=== PATIENT | male | born 1975 | race Caucasian/White ===

== ENCOUNTER 2025-02-12 20:24 | Emergency (ER) | payer OTHER, SELFPAY ==
--- NOTE | ~2025-02-12 | CT_ITS ---
CT ANGIOGRAM NECK AND HEAD History: Dizziness. Technique: Axial noncontrast imaging of the brain was performed. Serial spiral axial images through t he head and neck were obtained during arterial phase IV injection of 100 cc of Omnipaque 350. 3-D postprocessing and MIP im ages were then reconstructed on the remote workstation. Dose reduction technique was used on this sca n by utilizing automated exposure control and iterative reconstruction technique. The dose-length pro duct (DLP) was 1729.75 mGy-cm. CTA neck findings: Bilateral vertebral arteries are patent. Bilateral common carotid, internal carot id, external carotid arteries are patent. There is calcified and soft plaque at the proximal right in ternal carotid artery with approximately 60% stenosis. No other stenosis identified. No large vessel occlusion. No aneurysm. The proximal right internal carotid artery demonstrates 60% stenosis relative to the normal distal artery lumen diameter. The proximal left internal carotid artery demonstrates 0 % stenosis relative to the normal distal artery lumen diameter. CTA head findings: Distal vertebral arteries, basilar artery, and posterior cerebral arteries are pat ent. Distal internal carotid arteries, middle cerebral arteries, and anterior cerebral arteries are p atent. No large vessel occlusion or stenosis. No aneurysm seen. Axial noncontrast imaging of the brain is unremarkable. No acute infarct, intracranial hemorrhage or mass lesion is seen. No mass effect or midline shift. Jang-white differentiation intact. Ventricles a nd subarachnoid spaces are unremarkable. Paranasal sinuses and mastoid air cells are clear. Calvarium intact. Impression: 60% stenosis to the proximal right internal carotid artery with mixed calcified and soft plaque prese nt in this region. Reviewed, dictated and finalized at location M. Impression: 60% stenosis to the proximal right internal carotid artery with mixed calcified and soft plaque present in this region.
--- NOTE | ~2025-02-12 | XR_ITS ---
EXAMINATION: XR chest 2V Exam Date/Time: 02/12/2025 21:29 CDT HISTORY: chest pain intermittent, dizziness Comparison: None. RESULT: Lines, tubes, and devices: Ostial markers. Lungs and pleura: Clear. Cardiomediastinal silhouette: Stable. Other: No acute osseous or upper abdominal finding. IMPRESSION: No acute cardiopulmonary process. Reviewed, dictated and finalized at location K.
--- OUTSIDE RECORDS SUMMARY | 2025-02-12 20:28 | XMS_ITS ---
Author Organization [facility] Address [address] [facility] [address] [place] [address] Care Team Providers Care Manager Regional Name Role Phone Aki Diaz Unavailable [phone] Encounters Encounter Location Date Provider Diagnosis [facility] [address] [facility] [address] [place] [address] 07/01/2024 Aki Diaz Plan Of Treatment No Information Progress Notes * Vamshi SAHU MDOB: [birth year] (49 yo M)Acc No.[id number]:07/01/2024 Progress Notes Patient: Elvin MARCANOVamshi Obrien Provider: Vinod RAY MD, Igor.Lynette.C.P, F.A.S.N. :1975 A ge:48 Y S ex:Male Date:07/01/2024 Address:[address] [place] [address] Subjective: * Chief Complaints: * * Medical History: Objective: * Vitals: Assessment: Plan: * Treatment: * Billing Information: * Visit Code: * Procedure Codes: * Electronic signature of Luis Enrique Diaz MD on 02/12/2025 at 08:28 PM CDT Sign off status: Pending * Provider: Vinod RAY MD, Igor.Lynette.C.P, F.A.S.N. Date: Generated for Printing/Faxing/eTransmitting on: 02/12/2025 08:28 PM CDT
--- OUTSIDE RECORDS SUMMARY | 2025-02-12 20:28 | XMS_ITS | Patient Health Record ---
Author Organization [facility] Address [address] [place] [address] Care Team Providers Care Associate Software Developer Name Role Phone Aki Diaz Unavailable [phone] Reason For Referral No Information Problems Problem Type SNOMED Code ICD Code Onset Dates Problem Status W/U Status Risk Notes Problem Type II diabetes mellitus without complication (478248914) Type 2 diabetes mellitus without complications (E11.9) Active confirmed Problem Hyperlipidemia (26255396) Hyperlipidemia, unspecified (E78.5) Active confirmed Problem Chronic kidney disease stage 2 (450306427) Chronic kidney disease, stage 2 (mild) (N18.2) Active confirmed Problem Essential hypertension (85872654) Essential hypertension (I10) Active confirmed Encounters Encounter Location Date Provider Diagnosis [facility] [place] [facility] [address] [place] [address] 08/19/2024 Aki Diaz Chronic kidney disease, stage 2 (mild) N18.2 ; Type 2 diabetes mellitus without complications E11.9 ; Essential hypertension I10 and Hyperlipidemia, unspecified E78.5 Assessments Encounter Date Diagnosis (ICD Code) Assessment Notes Treatment Notes Treatment Clinical Notes Section Notes 08/19/2024 Type 2 diabetes mellitus without complications (ICD-10 - E11.9) 08/19/2024 Chronic kidney disease, stage 2 (mild) (ICD-10 - N18.2) 08/19/2024 Essential hypertension (ICD-10 - I10) 08/19/2024 Hyperlipidemia, unspecified (ICD-10 - E78.5) Plan Of Treatment No Information
--- OUTSIDE RECORDS SUMMARY | 2025-02-12 20:28 | XMS_ITS | CONTINUITY OF CARE DOCUMENT ---
Author Name oracio, awaisser Address Unknown Organization [facility] Address [address] [address] [place] [address] Phone [phone] Care Team Providers Care Investigations Chief Name Role Phone Dat Tomas MD Unavailable Dat Tomas MD Unavailable DEVANTE THURMAN MD Unavailable [phone] PROBLEMS Condition Status Date Provider Notes Cardiology examination active Dat Tomas MD Diabetes mellitus active Dat Tomas MD HYPERTENSION active Dat Tomas MD Hyperlipidemia active Dat Tomas MD CAD active Dat Tomas MD Myocardial infarction active Dat Talbert CAD s/p CABG active Freda Boogiemikelley [employer] ENCOUNTERS Date Type Provider Location Encounter Diag nosis 12/16 - 4 In-person encounter Office Visit Dat Tomas MD [facility] CAD s/p CABG 05/21 - 05/21 In-person encounter Office Visit Dat Tomas MD [facility] 11/13 - 11/14 In-person encounter Office Visit Dat Tomas MD [facility] 09/30 - 09/30 In-person encounter Office Visit Dat Tomas MD [facility] 06/09 - 06/09 In-person encounter Office Visit Dat Tomas MD [facility] 05/01 - 05/01 In-person encounter Office Visit Dat Tomas MD [facility] Cardiology examinationDiabetes mellitusHYPERTENSIONHyperlipidemiaCADMyocardial infarction VITAL SIGNS Date Observation Value Provider Body Mass Index (Ratio) 32.57 kg/m2 Viry Tomas MD blood pressure, diastolic 82 mm[Hg] Minerva nkLogic blood pressure, systolic 120 mm[Hg] Dominique kLogic blood pressure, cuff size regular Ja rret blood pressure, diastolic 82 mm[Hg] Ja rret blood pressure, systolic 120 mm[Hg] Jar pulse rate 82 /min Jean respiratory rate E&M 16 /min oxygen saturation, oximetry 97 % weight E&M 208 [lb_av] Jean y height E&M 67 [in_i] Jean Body Mass Index (Ratio) 31.79 kg/m2 Viry Tomas MD blood pressure, cuff size regular Ja rret blood pressure, diastolic 81 mm[Hg] Ja rret blood pressure, systolic 146 mm[Hg] Jar ret pulse rate 82 /min Jean oxygen saturation, oximetry 96 % respiratory rate E&M 12 /min Jean weight E&M 203 [lb_av] Jean y height E&M 67 [in_i] Jean y Body Mass Index (Ratio) 32.73 kg/m2 Viry Tomas MD blood pressure, cuff size large Ke rri Gruenenfelder blood pressure, diastolic 74 mm[Hg] Ke rri Gruenenfelder blood pressure, systolic 114 mm[Hg] Re ri Gruenenfelder oxygen saturation, oximetry 97 % Marcelina Gruenenfelder respiratory rate E&M 14 /min Marcelina G ruenenfelder pulse rate 78 /min Marcelina Gruenenfe er weight E&M 209 [lb_av] Marcelina Gruenenfe er height E&M 67 [in_i] Marcelina Gruenenfe [facility] Body Mass Index (Ratio) 33.36 kg/m2 Viry Tomas MD blood pressure, cuff size large Ke rri Gruenenfelder blood pressure, diastolic 81 mm[Hg] Ke rri Gruenenfelder blood pressure, systolic 130 mm[Hg] Re ri Indrauenejohannyelder oxygen saturation, oximetry 98 % Marcelina Amandanejohannyelder respiratory rate E&M 16 /min Marcelina G miguelinaenenfelder pulse rate 74 /min Marcelina Gruenenfe er weight E&M 213 [lb_av] Marcelina Grtanyanenfe [facility] height E&M 67 [in_i] Marcelina Gruenenfe [facility] blood pressure, diastolic 78 mm[Hg] Li nkLogic blood pressure, systolic 128 mm[Hg] Dominique kLogic Body Mass Index (Ratio) 33.20 kg/m2 Viry Tomas MD blood pressure, cuff size regular St acradha Lawrence blood pressure, diastolic 78 mm[Hg] St acy Howard blood pressure, systolic 128 mm[Hg] Aimee Lawrence oxygen saturation, oximetry 97 % Neetu Lawrence pulse rate 96 /min Neetu Lawrence respiratory rate E&M 18 /min Neetu finn weight E&M 212 [lb_av] Neetu Lawrence height E&M 67 [in_i] Neetu Lawrence Body Mass Index (Ratio) 31.63 kg/m2 Viry Tomas MD blood pressure, diastolic 63 mm[Hg] Li nkLogic blood pressure, systolic 109 mm[Hg] Dominique kLogic blood pressure, diastolic 63 mm[Hg] Sa ra [place] blood pressure, systolic 109 mm[Hg] Jacob a [place] respiratory rate E&M 19 /min [place] Si ms oxygen saturation, oximetry 96 % [place] pulse rate 75 /min [place] weight E&M 202 [lb_av] [place] height E&M 67 [in_i] [place] blood pressure, cuff size regular Sa ra [place] ALLERGIES No Known Drug Allergies HISTORY OF MEDICATION USE Medication Status Instructions Dates Provider Indications Com mentjuli Jardiance 10 mg tablet active TAKE 1 TABLET BY MOUTH EVERY DAY Marcelina Oliver metoprolol succinate 50 mg tablet extended release 24 hr active TAKE 1 TABLET BY MOUTH TWICE DAILY EVERY DAY Kallie Fong metformin 1,000 mg tablet active TAKE 1 TABLET BY MOUTH TWICE DAILY Kalpana Bess pantoprazole 40 mg tablet,delayed release (DR/EC) active Freda Ventimiglia [employer] isosorbide mononitrate 30 mg tablet extended release 24 hr active Freda Ventimiglia [employer] tramadol 50 mg tablet active Freda Ventimiglia [employer] clopidogrel 75 mg tablet active Take 1 tablet by mouth once a day Freda Boogiemiglia [employer] aspirin 81 mg tablet,delayed release (DR/EC) active 1 tablet by mouth once a day TAKE 1 TABLET EVERY DAY Freda LLAMAS aspirin 81 mg tablet,delayed release (DR/EC) completed TAKE 1 TABLET BY MOUTH DAILY - Fredaaliya LLAMAS rosuvastatin 40 mg tablet active TAKE 1 TABLET BY MOUTH EVERY DAY AT BEDTIME Kallie Rushieklsie clopidogrel 75 mg tablet completed TAKE 1 TABLET BY MOUTH EVERY DAY - Freda LLAMAS Crestor 40 mg tablet completed TAKE 1 TABLET BY MOUTH EVERYDAY AT BEDTIME - Jean Obrien atorvastatin 80 mg tablet completed Take 1 tablet by mouth every evening - Dat Tomas MD rosuvastatin 40 mg tablet completed Take 1 tablet by mouth every evening - Dat Tomas MD metformin 1,000 mg tablet completed TAKE 1 TABLET TWICE A DAY - [facility] C[facility] 5 mg tablet completed TAKE 1 TABLET BY MOUTH EVERY DAY - Anais [place] Plavix 75 mg tablet completed TAKE 1 TABLET BY MOUTH ONCE DAILY - [facility] Jardiance 10 mg tablet completed Take 1 tablet by mouth once a day - Marcelina Oliver metoprolol succinate 50 mg tablet extended release 24 hr completed Take 1 tablet by mouth twice a day TAKE ONE TABLET BY MOUTH ONCE DAILY - Kallie Fong nitroglycerin 0.4 mg tablet, sublingual active Take 1 tablet under tongue as needed for chest pain. Up to 3 tablets per episode (5 min apart). If no relief, go to ER. Dat Tomas MD metformin 1,000 mg tablet completed - Dat Tomas MD metoprolol tartrate 50 mg tablet completed Take 1 tablet by mouth twice a day - Dat Tomas MD lisinopril 10 mg tablet active Take 1 tablet by mouth once a day TAKE 1 TABLET BY MOUTH EVERY DAY Dat Tomas MD glimepiride unspecified unspecified completed 2 mg - Dat Tomas MD nitroglycerin completed 1 tablet under tongue as needed for chest pain. Up to 3 tablets per episode (5 min apart). If no relief, go to ER. - Dat Tomas MD SOCIAL HISTORY Date Observation Value Provider personal history of marijuana use no Freda Ventimiglia [facility] drug use no Freda Ventimig shari [facility] alcohol use no Freda Ventimig shari [facility] smoking status Never smoker Dat Tomas MD number of grandchildren Dat Tomas MD social history E&M S moking History: Juanito morris has never smoked. Dat Tomas MD social history reviewed E&M revi ewed - no changes required Dat Tomas MD smoking status Never smoker Dat Tomas MD social history E&M S moking History: Juanito morris has never smoked. Dat Tomas MD social history reviewed E&M revi ewed - no changes required Dat Tomas MD smoking status Never smoker Marcelina blevins social history E&M S moking History: Juanito morris has never smoked. Dat Tomas MD social history reviewed E&M revi ewed - no changes required Dat Tomas MD smoking status Never smoker Marcelina blevins social history E&M S moking History: Juanito morris has never smoked. Dat Tomas MD social history reviewed E&M revi ewed - no changes required Dat Tomas MD smoking status Never smoker Neetu Lawrence social history reviewed E&M aly ewed - no changes required Dat Tomas MD social history E&M S moking History: P alexandra has never smoked. Dat Tomas MD smoking status Never smoker Dat Tomas MD FUNCTIONAL STATUS Date Observation Value Provider HRA, CV Assess/Plan, Angina (inactive) Management Plan continue current therapy Freda Keaganmelissakelley LLAMAS HRA, CV Assess/Plan, Angina (inactive) Management Plan continue current therapy Dat Tomas MD HRA, CV Assess/Plan, Angina (inactive) Management Plan continue current therapy Dat Tomas MD HRA, CV Assess/Plan, Angina (inactive) Management Plan continue current therapy Dat Tomas MD HRA, CV Assess/Plan, Angina (inactive) Management Plan continue current therapy Dat Tomas MD INSURANCE PROVIDERS Payer name Policy type / Coverage type [place] [employer] Medicaid [id number] ADVANCE DIRECTIVES Name Date DISCUSSED - NO DECISION MADE TREATMENT PLAN Date Name Performer [id number],S, Dat Tomas MD [id number],W, B P today: 146/81 P rior BP: 114/74 (11/13/2022) Dat Tomas MD [id number],C,H ave encouraged him to find a PCP, will check an A1C Dat Tomas MD [id number],C,W e need to make sure his LDL is as low as possible so check his. We will check labs. Also check nuclear stress test Dat Tomas MD [id number],C,I mproved. Increased metformin to 1000 mg bid. Dat Tomas MD [id number],C, C heck lipid panel and lp(a) H is updated medication list for this problem includes: Crestor 40 Mg Tablet (Rosuvastatin) ..... Take 1 tablet by mouth everyday at bedtime Dat Tomas MD [id number],C, B P today: 114/74 P rior BP: 130/81 (07/31/2022) His updated medication list for this problem includes: Lisinopril 5 Mg Tablet (Lisinopril) ..... Take 1 tablet by mouth once a day take 1 tablet by mouth every day Metoprolol Succinate 50 Mg Tablet Extended Release 24 Hr (Metoprolol succinate) ..... Take 1 tablet by mouth twice a day take one tablet by mouth once daily Dat Tomas MD [id number],S,S table. Continue medical therapy. Will start atorvastatin 80mg once daily and stop his rosuvastatin. Will check some labs. Dat Tomas MD [id number],S, B P today: 130/81 P rior BP: 128/78 (06/09/2022) Dat Tomas MD [id number],S,Per PCP Dat Tomas MD [id number],S,C hanged rosuvastain to atorvstatin 80mg once daily Dat Tomas MD [id number],S, B P today: 128/78 P rior BP: 109/63 (05/01/2022) Dat Tomas MD [id number],C,W e will continue aspirin, plavix, statin Dat Tomas MD [id number],S,H e has multivessel CAD but it is not in my opinion easily amenable to PCI or CABG Dat Tomas MD [id number],S, Dat Tomas MD [id number],S,W e need his PCP to treat his diabetes efficiently Dat Tomas MD [id number],C, B P today: 128/78 P rior BP: 109/63 (05/01/2022) Dat Tomas MD [id number],S,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 His distal LAD is totally occluded. His PDA was occluded which I opened up but it was too diffusely diseased to stent. He is still having discomfort and I will try to increase his medical therapy by increasing Metoprolol and giving him Nitro prn. I did let him know that if he has ongoing discomfort that does not respond to the nitro then he will need to seek medical advice. Dat Tomas MD [id number],S,H as began cholesterol meds. Dat Tomas MD [id number],C, B P today: 109/63 Dat Tomas MD [id number],C,H is blood sugars are still running in 250-300 range. He is on Metformin and a Sulfonylurea. I am going to add Jardiance and I will give him samples. I've told him to cut down on his simple carbs and no sodas, etc. Dat Tomas MD Cardiology:BP 120/82 c ontinue present medication regimen H is updated medication list for this problem includes: Aspirin 81 Mg Tablet,delayed Release (dr/ec) (Aspirin) ..... 1 tablet by mouth once a day take 1 tablet every day Aspirin 81 Mg Tablet,delayed Release (dr/ec) (Aspirin) ..... Take 1 tablet by mouth daily Lisinopril 10 Mg Tablet (Lisinopril) ..... Take 1 tablet by mouth once a day take 1 tablet by mouth every day Metoprolol Succinate 50 Mg Tablet Extended Release 24 Hr (Metoprolol succinate) ..... Take 1 tablet by mouth twice a day take one tablet by mouth once [facility]:with [facility]G 11/03/2023 had TERRAZAS to LAD, left radial to OM and SVG to PDA E F of 65% on echo 11/17/23 T he following medications were removed from the medication list: Clopidogrel 75 Mg Tablet (Clopidogrel) ..... Take 1 tablet by mouth every day His updated medication list for this problem includes: Isosorbide Mononitrate 30 Mg Tablet Extended Release 24 Hr (Isosorbide mononitrate) Clopidogrel 75 Mg Tablet (Clopidogrel) ..... Take 1 tablet by mouth once a day Aspirin 81 Mg Tablet,delayed Release (dr/ec) (Aspirin) ..... 1 tablet by mouth once a day take 1 tablet every day Aspirin 81 Mg Tablet,delayed Release (dr/ec) (Aspirin) ..... Take 1 tablet by mouth daily Lisinopril 10 Mg Tablet (Lisinopril) ..... Take 1 tablet by mouth once a day take 1 tablet by mouth every day Metoprolol Succinate 50 Mg Tablet Extended Release 24 Hr (Metoprolol succinate) ..... Take 1 tablet by mouth twice a day take one tablet by mouth once daily Nitroglycerin 0.4 Mg Tablet, Sublingual (Nitroglycerin) ..... Take 1 tablet under tongue as needed for chest pain. up to 3 tablets per episode (5 min apart). if no relief, go to er. [facility] Cardiology:LDL 67 on last labs r emains on crestor H is updated medication list for this problem includes: Rosuvastatin 40 Mg Tablet (Rosuvastatin) ..... Take 1 tablet by mouth every day at bedtime [facility] Cardiology:last Hgb A1C 8.2% on last labs m anagement per primary H is updated medication list for this problem includes: Aspirin 81 Mg Tablet,delayed Release (dr/ec) (Aspirin) ..... 1 tablet by mouth once a day take 1 tablet every day Aspirin 81 Mg Tablet,delayed Release (dr/ec) (Aspirin) ..... Take 1 tablet by mouth daily Lisinopril 10 Mg Tablet (Lisinopril) ..... Take 1 tablet by mouth once a day take 1 tablet by mouth every day Metformin 1,000 Mg Tablet (Metformin) ..... Take 1 tablet twice a day Jardiance 10 Mg Tablet (Empagliflozin) ..... Take 1 tablet by mouth once a day Freda Shankar MURIEL Cardiology Dat Tomas MD Cardiology: B P today: 146/81 P rior BP: 114/74 (11/13/2022) Dat Tomas MD Cardiology:Have enco uraged him to find a PCP, will check an A1C Dat Tomas MD Cardiology:We need t o make sure his LDL is as low as possible so check his. We will check labs. Also check nuclear stress test Dat Tomas MD Cardiology:Improved. Increased metformin to 1000 mg bid. Dat Tomas MD Cardiology: C neo lipid panel and lp(a) H is updated medication list for this problem includes: Crestor 40 Mg Tablet (Rosuvastatin) ..... Take 1 tablet by mouth everyday at bedtime Dat Tomas MD Cardiology: B P today: 114/74 P rior BP: 130/81 (07/31/2022) His updated medication list for this problem includes: Lisinopril 5 Mg Tablet (Lisinopril) ..... Take 1 tablet by mouth once a day take 1 tablet by mouth every day Metoprolol Succinate 50 Mg Tablet Extended Release 24 Hr (Metoprolol succinate) ..... Take 1 tablet by mouth twice a day take one tablet by mouth once daily Dat Tomas MD Cardiology:Stable. C ontinue medical therapy. Will start atorvastatin 80mg once daily and stop his rosuvastatin. Will check some labs. Dat Tomas MD Cardiology: B P today: 130/81 P rior BP: 128/78 (06/09/2022) Dat Tomas MD Cardiology:Per PCP Dat Tomas MD Cardiology:Changed r osuvastain to atorvstatin 80mg once daily Dat Tomas MD Cardiology: B P today: 128/78 P rior BP: 109/63 (05/01/2022) Dat Tomas MD Cardiology:We will continue aspi rin, plavix, statin Dat Tomas MD Cardiology:He has mu ltivessel CAD but it is not in my opinion easily amenable to PCI or CABG Dat Tomas MD Cardiology Dat Tomas MD Cardiology:We need h is PCP to treat his diabetes efficiently Dat Tomas MD Cardiology: B P today: 128/78 P rior BP: 109/63 (05/01/2022) Dat Tomas MD Cardiology: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 His distal LAD is totally occluded. His PDA was occluded which I opened up but it was too diffusely diseased to stent. He is still having discomfort and I will try to increase his medical therapy by increasing Metoprolol and giving him Nitro prn. I did let him know that if he has ongoing discomfort that does not respond to the nitro then he will need to seek medical advice. Dat Tomas MD Cardiology:Has began cholesterol meds. Dat Tomas MD Cardiology: B P today: 109/63 Dat Tomas MD Cardiology:His blood sugars are still running in 250-300 range. He is on Metformin and a Sulfonylurea. I am going to add Jardiance and I will give him samples. I've told him to cut down on his simple carbs and no sodas, etc. Dat Tomas MD Date Name LIPID PANEL Stress Exercise Card iolite Complete Echo Microalb/Creatinine Urine, Random HEMOGLOBIN A1c Lipoprotein (a) LIPID PANEL COMPREHENSIVE METABO LIC PANEL, W/EGFR Complete Echo HEMOGLOBIN A1c COMPREHENSIVE METABO LIC PANEL, W/EGFR Lipoprotein (a) LIPID PANEL CRP, high sensitivit y HEMOGLOBIN A1c LIPID PANEL Lipoprotein (a) COMPREHENSIVE METABO LIC PANEL, W/EGFR HEMOGLOBIN A1c LIPID PANEL COMPREHENSIVE METABO LIC PANEL, W/EGFR Complete Echo HISTORY OF PROCEDURES Procedure Date Procedure Name Provider Procedure Notes S tatus EKG Dat Tomas MD completed EKG Dat Tomas MD completed
--- OUTSIDE RECORDS SUMMARY | 2025-02-12 20:29 | XMS_ITS | Referral Summary ---
Author Organization [facility] Address [address] [place] [address] Care Team Providers Care Marble Installer Supervisor Name Role Phone Earl Price MD Unavailable [phone] Dat Tomas MD Unavailable Lizette Smith MD Unavailable [phone] Se Wolf MD Primary Care Provide r Dusty Scruggs MD Unavailable [phone] Encounters Date Type Department Care Team Description 11/18/2024 10:17 PM MANAGED CARE LIAISON - 11/18/2024 11:50 PM [facility] Emergency [address] [address] Chronic right shoulder pain (Primary Dx) Discharge Disposition: Discharge to home or self care from Last 3 Months Allergies No known active allergies Medications empagliflozin (JARDIANCE) 10 mg tablet Take 1 tablet (10 mg total) by mouth daily Active metFORMIN (GLUCOPHAGE) 1,000 mg tablet Take 1 tablet (1,000 mg total) by mouth 2 (two) times a day with meals Active aspirin 81 mg enteric coated tablet Take 1 tablet (81 mg total) by mouth daily 30 tablet 11 4 Active lidocaine (LIDODERM) 5 %Indications:Sterna l pain Place 1 patch on the skin daily Remove & discard patch within 12 hours or as directed by . 30 patch 4 Active ranolazine ER (RANEXA) 500 mg 12 hr tabletIndications:C oronary artery disease involving [place] coronary artery of [place] heart without angina pectoris,Chest pain, unspecified type Take 1 tablet (500 mg total) by mouth 2 (two) times a day 60 tablet 11 4 04/20/20 25 Active clopidogreL (PLAVIX) 75 mg tabletIndications:C oronary artery disease involving [place] coronary artery of [place] heart without angina pectoris Take 1 tablet (75 mg total) by mouth daily 90 tablet 3 4 04/20/20 25 Active lisinopriL (PRINIVIL,ZESTRIL) 10 mg tabletIndications:P rimary hypertension Take 1 tablet (10 mg total) by mouth daily 90 tablet 3 4 04/20/20 25 Active metoprolol XL (TOPROL-XL) 50 mg extended release tabletIndications:C oronary artery disease involving [place] coronary artery of [place] heart without angina pectoris,Primary hypertension Take 1 tablet (50 mg total) by mouth 2 (two) times a day 180 tablet 3 4 04/20/20 25 Active nitroglycerin (NITROSTAT) 0.4 mg SL tabletIndications:C oronary artery disease involving [place] coronary artery of [place] heart without angina pectoris,Chest pain, unspecified type Place 1 tablet (0.4 mg total) under the tongue every 5 (five) minutes as needed for chest pain 90 tablet 4 Active rosuvastatin (CRESTOR) 40 mg tabletIndications:C oronary artery disease involving [place] coronary artery of [place] heart without angina pectoris,Mixed hyperlipidemia Take 1 tablet (40 mg total) by mouth nightly 90 tablet 3 4 04/20/20 25 Active lidocaine (LIDODERM) 5 %Indications:Pain Place 1 patch on the skin daily Use patch for 12 hours on, 12 hours off. Discard after each use 7 patch 5 Active Active Problems Problem Noted Date Diagnosed Date Sternal pain 03/02/2024 Acute postoperative pulmonary insufficiency 10/16 Nausea 11/06/2023 S/P CABG (coronary artery bypass graft) 11/03/19 24 Angina pectoris, unstable 10/26/2023 Acute chest pain 10/25/2023 Chest pain, unspecified type 10/23/2023 Coronary artery disease invo lving [place] coronary artery of [place] heart without angina pectoris 10/23/2023 Hyperlipidemia 05/01/2022 Hypertension 05/01/2022 Resolved Problems Problem Noted Date Diagnosed Date Resolved Date Multi-vessel coronary artery stenosis 11/06/2023 01/08/2024 Social History Tobacco Use Types Packs/Day Years Used Date Smoking Tobacco: Never Smokeless Tobacco: Never Tobacco Cessation:Counseling Given: Not Answered [facility] Utilities Answer Date Recorded In the past 12 months has th e electric, gas, oil, or water company threatened to shut off services in your home? No 11/16/2023 Social Connection and Isolat ion Panel [NHANES] Answer Date Recorded In a typical week, how many times do you talk on the phone with family, friends, or neighbors? More than three times a week 11/16/2023 How often do you get togethe r with friends or relatives? More than three times a week 11/16/2023 How often do you attend chur ch or mosque services? Never 11/16/2023 Do you belong to any clubs o r organizations such as religion groups, unions, fraternal or athletic groups, or school groups? No 11/16/2023 How often do you attend meet ings of the clubs or organizations you belong to? Never 11/16/2023 Are you , , di vorced, , never , or living with a partner? 11/16/2023 AUDIT-C Answer Date Recorded Q1: How often do you have a drink containing alcohol? Never 04/08/2024 Q2: How many drinks containi ng alcohol do you have on a typical day when you are drinking? Patient does not drink Q3: How often do you have si x or more drinks on one occasion? Never 04/08/2024 Overall Financial Resource Strain (CARDIA) Answe r Date Recorded How hard is it for you to pa y for the very basics like food, housing, medical care, and heating? Not very hard 11/16/2023 Hunger Vital Sign Answer Date Recorded Within the past 12 months, y ou worried that your food would run out before you got the money to buy more. Never true 11/16/19 24 Within the past 12 months, t he food you bought just didn't last and you didn't have money to get more. Never true 11/16/2023 PRAPARE - Transportation Answer Date Re corded In the past 12 months, has l ack of transportation kept you from medical appointments or from getting medications? No 12/2023 In the past 12 months, has l ack of transportation kept you from meetings, work, or from getting things needed for daily living? No 11/16/2023 Housing Stability Vital Sign Answer Ben e Recorded In the last 12 months, was t here a time when you were not able to pay the mortgage or rent on time? No 11/16/2023 In the last 12 months, how many places have you lived? 1 11/16/2023 In the last 12 months, was t here a time when you did not have a steady place to sleep or slept in a fpc (including now)? No 11/16/2023 Personal Safety Answer Date Recorded Have you ever been in or are you currently in a harmful physical or emotional relationship or is someone making you feel afraid or unsafe? Denies 11/18/2024 Sex and Gender Information Value Date Recorded Sex Assigned at Not on file Legal Sex Male 8:57 PM CDT Gender Identity Not on file Sexual Orientation Not on file Last Filed Vital Signs Vital Sign Reading Time Taken Comments Blood Pressure 120/66 11/18/2024 11:45 PM MANAGED CARE LIAISON Pulse 61 11/18/2024 11:45 PM MANAGED CARE LIAISON Temperature 36.6 C (97.9 F) 11/18/2024 8:16 PM MANAGED CARE LIAISON Respiratory Rate 18 11/18/2024 11:45 PM MANAGED CARE LIAISON Oxygen Saturation 98% 11/18/2024 11:45 PM MANAGED CARE LIAISON Inhaled Oxygen Concentration - - Weight 97.1 kg (214 lb) 11/18/2024 8:34 PM MANAGED CARE LIAISON Height 170.2 cm (5' 7) 11/18/2024 8:16 PM MANAGED CARE LIAISON Body Mass Index 33.52 11/18/2024 8:16 PM MANAGED CARE LIAISON Plan of Treatment Not on file Medical Devices Implanted Type Area Gis Developer Device Identifier Shelf Expiration Date Model / Serial / Lot [employer] Synergy Xd Monorail 3.5mm 24mm 144cm Delivery System 1 Access [id number] - [id number] Implanted:Qty: 1 on 04/22/2022 by Dat Tomas MD at [facility] [employer] Paul 12/09/2023 [id number] / / [id number] [employer] Angio-Seal Vip 6fr Closere Device [id number] - [id number] Implanted:Qty: 1 on 10/26/2023 by Sin Lawler MD at [facility] N/A: Groin [employer] Paul 02/23/2024 [id number] / / [id number] [employer] Heck Distal Marker Radiology Stainless Steel Sterile [facility] - [id number] Implanted:Qty: 2 on 11/03/2023 by Dusty Scruggs MD at [facility] Left: Heart [employer] [id number] 02/12/2026 AM-D / / [id number] Jovel Vascular System Closure Repair Femoral Artery Suture Mediated Perclose Prostyle 41353-67 - [id number] Implanted:Qty: 1 on 04/08/2024 by Sin Lawler MD at [facility] [employer] Vascular 11/11/2025 [id number] / / [id number] Procedures Procedure Name Priority Date/Time Associated Diagnosis Comments XR HUMERUS RIGHT 2 OR MORE VIEWS ED 11/18/2024 9:11 PM MANAGED CARE LIAISON XR SHOULDER RIGHT 2 OR MORE VIEWS ED 11/18/2024 9:11 PM MANAGED CARE LIAISON from Last 3 Months Results * XR Humerus Right 2 or More Views (11/18/2024 9:11 PM MANAGED CARE LIAISON) Anatomical Region Laterality Modality Upper Extremities, Upper Arm Right Com puted Radiography 11/18/2024 9:22 PM MANAGED CARE LIAISON Narrative 11/18/2024 9:29 PM MANAGED CARE LIAISON EXAM DESCRIPTION: XR HUMERUS RIGHT 2 OR MORE VIEWS; XR SHOULDER RIGHT 2 OR MORE VIEWS REASON FOR STUDY: Pain, Upper Extremity Injury or Trauma Pt stated that he had heart surgery x 1 year ago and his right shoulder has been painful and it extends down into elbow ever since the surgery, pt stated he has gone to physical therapy TECHNIQUE: 2 radiographic view(s) of the right humerus and 4 radiographic views of the right shoulder . COMPARISON: None available. FINDINGS: BONES/JOINTS: There is normal osseous alignment. No acute fracture or dislocation. Mild osteoarthritic changes at the acromioclavicular joint. The glenohumeral and elbow joint spaces are maintained. SOFT TISSUES: Within normal limits. IMPRESSION: No acute osseous abnormality. THIS IS AN ELECTRONICALLY VERIFIED FINAL REPORT 11/18/2024 9:29 PM - Electronically signed by Fabian Salas M.D. T: Report ID: [id number] Reading Location: [id number] Procedure Note Fabian Salas, DO - 11/18/2024 EXAM DESCRIPTION: XR HUMERUS RIGHT 2 OR MORE VIEWS; XR SHOULDER RIGHT 2 OR MORE VIEWS REASON FOR STUDY: Pain, Upper Extremity Injury or Trauma Pt stated that he had heart surgery x 1 year ago and his right shoulderhas been painful and it extends down into elbow ever since the surgery, ptstated he has gone to physical therapy TECHNIQUE: 2 radiographic view(s) of the right humerus and 4radiographic views of the right shoulder . COMPARISON: None available. FINDINGS: BONES/JOINTS: There is normal osseous alignment. No acutefracture or dislocation. Mild osteoarthritic changes at the acromioclavicularjoint. The glenohumeral and elbow joint spaces are maintained. SOFT TISSUES: Within normal limits. IMPRESSION: No acute osseous abnormality. THIS IS AN ELECTRONICALLY VERIFIED FINAL REPORT 11/18/2024 9:29 PM - Electronically signed by Fabian Salas M.D. T: Report ID: [id number] Reading Location: [id number] Isaias Soto MD IMBuddy XR PROCEDURES F inal Result * XR Shoulder Right 2 or More Views (11/18/2024 9:11 PM MANAGED CARE LIAISON) Anatomical Region Laterality Modality Upper Extremities, Shoulder Right Comp uted Radiography 11/18/2024 9:22 PM MANAGED CARE LIAISON Narrative 11/18/2024 9:29 PM MANAGED CARE LIAISON EXAM DESCRIPTION: XR HUMERUS RIGHT 2 OR MORE VIEWS; XR SHOULDER RIGHT 2 OR MORE VIEWS REASON FOR STUDY: Pain, Upper Extremity Injury or Trauma Pt stated that he had heart surgery x 1 year ago and his right shoulder has been painful and it extends down into elbow ever since the surgery, pt stated he has gone to physical therapy TECHNIQUE: 2 radiographic view(s) of the right humerus and 4 radiographic views of the right shoulder . COMPARISON: None available. FINDINGS: BONES/JOINTS: There is normal osseous alignment. No acute fracture or dislocation. Mild osteoarthritic changes at the acromioclavicular joint. The glenohumeral and elbow joint spaces are maintained. SOFT TISSUES: Within normal limits. IMPRESSION: No acute osseous abnormality. THIS IS AN ELECTRONICALLY VERIFIED FINAL REPORT 11/18/2024 9:29 PM - Electronically signed by Fabian Salas M.D. T: Report ID: [id number] Reading Location: [place] [address] Procedure Note Fabian Salas, DO - 11/18/2024 EXAM DESCRIPTION: XR HUMERUS RIGHT 2 OR MORE VIEWS; XR SHOULDER RIGHT 2 OR MORE VIEWS REASON FOR STUDY: Pain, Upper Extremity Injury or Trauma Pt stated that he had heart surgery x 1 year ago and his right shoulderhas been painful and it extends down into elbow ever since the surgery, ptstated he has gone to physical therapy TECHNIQUE: 2 radiographic view(s) of the right humerus and 4radiographic views of the right shoulder . COMPARISON: None available. FINDINGS: BONES/JOINTS: There is normal osseous alignment. No acutefracture or dislocation. Mild osteoarthritic changes at the acromioclavicularjoint. The glenohumeral and elbow joint spaces are maintained. SOFT TISSUES: Within normal limits. IMPRESSION: No acute osseous abnormality. THIS IS AN ELECTRONICALLY VERIFIED FINAL REPORT 11/18/2024 9:29 PM - Electronically signed by Fabian Salas M.D. T: Report ID: [id number] Reading Location: [id number] Isaiasduke Soto MD IMG XR PROCEDURES F inal Result from Last 3 Months Insurance [facility] Advance Directives For more information, please contact: [phone] * Full Code (Latest Code Status on File) Date Activated Date Inactivated Comments 11/15/2023 8:34 PM 11/18/2023 5:34 PM * Full Code Date Activated Date Inactivated Comments 11/03/2023 2:59 PM 11/09/2023 11:11 PM * Full Code Date Activated Date Inactivated Comments 10/23/2023 11:52 PM 10/29/2023 8:14 PM * Full Code Date Activated Date Inactivated Comments 04/22/2022 11:25 PM 04/24/2022 8:49 PM Care Teams Marble Installer Supervisor Relationship Specialty Start Date End Date Se Wolf MD [address] [address] PCP - General Internal Medicine 03/04/24 [place] [address] [address] Consulting Physician Endocrinology Diabetes & Metabolism 04/24/22 Dat Tomas MD [address] [place] [address] Consulting Physician Cardiovascular Disease 04/24/22 Lizette Smith MD [address] [address] Consulting Physician Cardiology 11/18/23 Dusty Scruggs MD [address] [address] Thoracic Surgery 03/15/24
--- OUTSIDE RECORDS SUMMARY | 2025-02-12 20:29 | XMS_ITS | Clinical Summary ---
Author Organization [facility] Address [address] [place] [address] Care Team Providers Care Shield Operator Name Role Phone Earl Price MD Unavailable [phone] Dat Tomas MD Unavailable Lizette Smith MD Unavailable [phone] Se Wolf MD Primary Care Provide r Dusty Scruggs MD Unavailable [phone] Allergies No known active allergies Medications empagliflozin [...] 12 hr tabletIndications:C oronary artery disease involving [place] coronary artery of [place] heart without angina pectoris,Chest pain, unspecified type Take 1 tablet (500 mg total) by mouth 2 (two) times a day 60 tablet 11 4 04/20/20 25 Active clopidogreL (PLAVIX) 75 mg tabletIndications:C oronary artery disease involving [place] coronary artery of [place] heart without angina pectoris Take 1 tablet (75 mg total) by mouth daily 90 tablet 3 4 04/20/20 25 Active lisinopriL (PRINIVIL,ZESTRIL) 10 mg tabletIndications:P rimary hypertension Take 1 tablet (10 mg total) by mouth daily 90 tablet 3 4 04/20/20 25 Active metoprolol XL (TOPROL-XL) 50 mg extended release tabletIndications:C oronary artery disease involving [place] coronary artery of [place] heart without angina pectoris,Primary hypertension Take 1 tablet (50 mg total) by mouth 2 (two) times a day 180 tablet 3 4 04/20/20 25 Active nitroglycerin (NITROSTAT) 0.4 mg SL tabletIndications:C oronary artery disease involving [place] coronary artery of [place] heart without angina pectoris,Chest pain, unspecified type Place 1 tablet (0.4 mg total) under the tongue every 5 (five) minutes as needed for chest pain 90 tablet 4 Active rosuvastatin (CRESTOR) 40 mg tabletIndications:C oronary artery disease involving [place] coronary artery of [place] heart without angina pectoris,Mixed hyperlipidemia Take 1 [...] type 10/23/2023 Coronary artery disease invo lving [place] coronary artery of [place] heart without angina pectoris 10/23/2023 Hyperlipidemia 05/01/2022 Hypertension 05/01/2022 Resolved Problems Problem Noted Date Diagnosed Date Resolved Date Multi-vessel coronary artery stenosis 11/06/2023 01/08/2024 Encounters Date Type Department Care Team Description 11/18/2024 10:17 PM GLUER MACHINE OPERATOR - 11/18/2024 11:50 PM GLUER MACHINE OPERATOR Emergency [facility] [address] [place] [address] Chronic right shoulder pain (Primary Dx) Discharge Disposition: Discharge to home or self care from Last 3 Months Surgical History Surgery Date Site/Laterality Comments CORONARY ANGIOPLASTY WITH STENT PLACEMENT 04/14/2022 - 05/14/2022 ANGEL X2 CARDIAC CATHETERIZATION 10/15/2023 - 11/12/2023 Severe LAD disease, occluded PDA that fills with [id number] collaterals, and severe stenosis in an OM distribution. CORONARY ARTERY BYPASS GRAFT 11/03/2023 N/A Triple bypass Medical History Medical History Date Comments Coronary artery disease Diabetes mellitus (HCC) Hypercholesteremia Hypertension Type 2 diabetes mellitus (HCC) CAD (coronary artery disease) History of inferior wall myocardial infarction 2 022 Social History Tobacco Use Types Packs/Day Years Used Date Smoking Tobacco: Never Smokeless Tobacco: Never Tobacco Cessation:Counseling Given: Not Answered [facility] Utilities Answer Date Recorded In the past 12 months has [employer], gas, oil, or water [employer] threatened to shut off services in your [...] often do you attend chur ch or faith services? Never 11/16/2023 Do you belong to any clubs o r organizations such as methodist groups, unions, fraternal or athletic groups, or [...] place to sleep or slept in a retirement (including now)? No 11/16/2023 Personal Safety Answer [...] on file Sexual Orientation Not on file Obstetrics History Last Filed Vital Signs Vital Sign Reading Time Taken Comments Blood Pressure 120/66 11/18/2024 11:45 PM GLUER MACHINE OPERATOR Pulse 61 11/18/2024 11:45 PM GLUER MACHINE OPERATOR Temperature 36.6 C (97.9 F) 11/18/2024 8:16 PM GLUER MACHINE OPERATOR Respiratory Rate 18 11/18/2024 11:45 PM GLUER MACHINE OPERATOR Oxygen Saturation 98% 11/18/2024 11:45 PM GLUER MACHINE OPERATOR Inhaled Oxygen Concentration - - Weight 97.1 kg (214 lb) 11/18/2024 8:34 PM GLUER MACHINE OPERATOR Height 170.2 cm (5' 7) 11/18/2024 8:16 PM GLUER MACHINE OPERATOR Body Mass Index 33.52 11/18/2024 8:16 PM GLUER MACHINE OPERATOR Plan of Treatment Health Maintenance Due Date Last Done Comments Colon Cancer Screening-Colonoscopy 1975 Depression Screening 1975 Hepatitis C Screening 1975 DTaP/Tdap/Td Vaccine (1 - Tdap) 1986 Hepatitis B Screening 1993 Regular Well Visit/Exam 18-64 1993 Influenza Vaccine (Season Ended) 2025 Pneumococcal vaccine <65 Aged Out No longer eligible based on patient's age to complete this topic Medical Devices Implanted Type Area Recruiting Intern Device Identifier Shelf Expiration Date Model / Serial / Lot [employer] Synergy Xd Monorail 3.5mm 24mm 144cm Delivery System 1 Access [id number] - [id number] Implanted:Qty: 1 on 04/22/2022 by Dat Tomas MD at [facility] [employer] 12/09/2023 [id number] / / [id number] [employer] Angio-Seal Vip 6fr Closere Device [id number] - [id number] Implanted:Qty: 1 on 10/26/2023 by Sin Lawler MD at [facility] N/A: Groin [employer] 02/23/2024 [id number] / / [id number] [employer] Heck Distal Marker Radiology Stainless Steel Sterile Amgm-D - [id number] Implanted:Qty: 2 on 11/03/2023 by Dusty Scruggs MD at [facility] Left: Heart [employer] [id number] 02/12/2026 AMGM-D / / [id number] Jovel Vascular System Closure Repair Femoral Artery Suture Mediated Perclose Prostyle 00914-15 - [id number] Implanted:Qty: 1 on 04/08/2024 by Sin Lawler MD at [facility] [employer] 11/11/2025 [id number] / / [id number] Procedures Procedure Name Priority Date/Time Associated Diagnosis Comments XR HUMERUS RIGHT 2 OR MORE VIEWS ED 11/18/2024 9:11 PM GLUER MACHINE OPERATOR XR SHOULDER RIGHT 2 OR MORE VIEWS ED 11/18/2024 9:11 PM GLUER MACHINE OPERATOR from Last 3 Months Results * XR Humerus Right 2 or More Views (11/18/2024 9:11 PM GLUER MACHINE OPERATOR) Anatomical Region Laterality Modality Upper Extremities, Upper Arm Right Com puted Radiography 11/18/2024 9:22 PM GLUER MACHINE OPERATOR Narrative 11/18/2024 9:29 PM GLUER MACHINE OPERATOR EXAM DESCRIPTION: XR HUMERUS RIGHT 2 OR [...] by Fabian Salas M.D. T: Report ID: [id number] Reading Location: [id number] Procedure Note Fabian Salas, - 11/18/2024 EXAM DESCRIPTION: XR HUMERUS RIGHT [...] by Fabian Salas M.D. T: Report ID: [id number] Reading Location: [id number] Isaias Soto MD IM XR PROCEDURES F inal Result * XR Shoulder Right 2 or More Views (11/18/2024 9:11 PM GLUER MACHINE OPERATOR) Anatomical Region Laterality Modality Upper Extremities, Shoulder Right Comp uted Radiography 11/18/2024 9:22 PM GLUER MACHINE OPERATOR Narrative 11/18/2024 9:29 PM GLUER MACHINE OPERATOR EXAM DESCRIPTION: XR HUMERUS RIGHT 2 OR [...] by Fabian Salas M.D. T: Report ID: [id number] Reading Location: [id number] Procedure Note Fabian Salas DO - 11/18/2024 EXAM DESCRIPTION: XR HUMERUS [...] by Fabian Salas M.D. T: Report ID: [id number] Reading Location: [place] [address] Isaias Soto MD IMG XR PROCEDURES F inal Result from Last 3 Months Insurance [facility] Advance Directives For more information, please contact: [phone] * Full Code (Latest Code Status on File) Date Activated Date Inactivated Comments 11/15/2023 8:34 PM 11/18/2023 5:34 PM * Full Code Date Activated Date Inactivated Comments 11/03/2023 2:59 PM 11/09/2023 11:11 PM * Full Code Date Activated Date Inactivated Comments 10/23/2023 11:52 PM 10/29/2023 8:14 PM * Full Code Date Activated Date Inactivated Comments 04/22/2022 11:25 PM 04/24/2022 8:49 PM Care Teams Shield Operator Relationship Specialty Start Date End Date Se Wolf MD [address] [facility] [address] [place] [address] PCP - General Internal Medicine 03/04/24 [place] [address] [facility] [address] [place] [address] Consulting Physician Endocrinology Diabetes & Metabolism 04/24/22 Dat Tomas MD [address] [place] [address] Consulting Physician Cardiovascular Disease 04/24/22 Lizette Smith MD [address] [facility] [address] [place] [address] [address] Consulting Physician Cardiology 11/18/23 Dusty Scruggs MD [address] [address] Thoracic Surgery 03/15/24
--- OUTSIDE RECORDS SUMMARY | 2025-02-12 20:29 | XMS_ITS ---
Author Organization [facility] Address [address] [place] [address] Care Team Providers Care School Counselor Name Role Phone Aki Diaz Unavailable [phone] Problems Problem Type SNOMED Code ICD Code Onset Dates Problem Status W/U Status Risk Notes Problem Chronic kidney disease stage 2 (050221589) Chronic kidney disease, stage 2 (mild) (N18.2) Active confirmed Problem Type II diabetes mellitus without complication (500172445) Type 2 diabetes mellitus without complications (E11.9) Active confirmed Problem Essential hypertension (98349887) Essential hypertension (I10) Active confirmed Problem Hyperlipidemia (39846263) Hyperlipidemia, unspecified (E78.5) Active confirmed Encounters Encounter Location Date Provider Diagnosis [facility] [place] [facility] [address] [place] [address] 08/19/2024 Aki Diaz Chronic kidney disease, stage [...] Vamshi SAHU MDOB: [birth year] (49 yo M)Acc No.[id number]:08/19/2024 Progress Notes Patient: Elvin Vamshi CARDONA Provider: Vinod RAY MD, F.A.C.P, F.A.S.N. :1975 A ge:48 Y S ex:Male Date:08/19/2024 Address:[facility] [place] [address] Subjective: * Chief Complaints: * * Medical History: Objective: * Vitals: Assessment: * Assessment: 1. C hronic kidney disease, stage 2 (mild) - N18.2 (Primary) 2 . T ype 2 diabetes mellitus without complications - E11.9 3 . E ssential hypertension - I10? 4. H yperlipidemia, unspecified - E78.5 Plan: * Treatment: * Billing Information: * Visit Code: 82202 Office Visit, New Pt., Level 5. * Procedure Codes: * Electronic signature of Luis Enrique Diaz MD on 02/12/2025 at 08:28 PM CDT Sign off status: Pending * Provider: Vinod RAY MD, F.AGabinoCGabinoP, F.A.S.N. Date: 10/20/2023 Generated for Printing/Faxing/eTransmitting on: 0 02/12/2025 08:28 PM CDT
--- NOTE | 2025-02-12 20:36 | ECG_ITS ---
Test Date: 2025-02-12 20:52:38 Measurements Intervals [place] Rate: 72 P: 35 ND: 151 QRS: 128 QRSD: 141 T: 36 QT: 390 QTc: 427 Interpretive Statements SINUS RHYTHM RIGHT BUNDLE BRANCH BLOCK LEFT POSTERIOR FASCICULAR BLOCK ABNORMAL ECG No previous ECG available for comparison Electronically Signed On 02-13-2025 06:10:33 CDT by Arvind Graham D.O.
[2025-02-12 20:39] VITALS: BP 116/76; PULSE 72; RESP 17; TEMP 36.5; O2SAT 98
[2025-02-12 20:58] LABS: Basophils Absolute Auto 0.1 K/mm3 (0.0-0.1); Basophils Percent Auto 0.8 % (0.2-1.2); Eosinophils Absolute Auto 0.2 K/mm3 (0-0.3); Eosinophils Percent Auto 2.2 % (0-4.4); Hematocrit 46.2 % (42.0-52.0); Hemoglobin 15.6 g/dL (14.0-18.0); Immature Granulocyte Absolute 0.02 K/mm3 (0.00-0.031); Immature Granulocyte Percent A 0.3 % (0-0.5); Lymphocytes Absolute Auto 2.95 K/mm3 (0.9-3.2); Lymphocytes Percent Auto 40.7 % (18.3-44.2); Mean Corpuscular HGB Conc 33.8 g/dl (32-36); Mean Corpuscular Volume 85.9 fl (80-100); Mean Platelet Volume 9.7 fl (7.4-10.4); Monocytes Absolute Auto 0.6 K/mm3 (0.1-0.6); Monocytes Percent Auto 7.9 % (2.6-8.5); Neutrophils Absolute Auto 3.5 K/mm3 (1.3-6.7); Neutrophils Percent Auto 48.1 % (45.5-73.1); Platelet Count Result 265 k/mm3 (150-375); Red Blood Count 5.38 M/mm3 (4.6-6.20); White Blood Count 7.2 K/mm3 (4.5-10.0)
[2025-02-12 21:09] LABS: Alanine Aminotransferase 23 U/L (6-50); Albumin Level 4.7 g/dL (3.5-5.1); Alkaline Phosphatase 73 U/L (38-126); Anion Gap 10 mmol/L (4-12); Aspartate Amino Transferase 29 U/L (17-59); Bilirubin,Total 0.6 mg/dL (0.2-1.3); Blood Urea Nitrogen 16 mg/dL (9-20); Calcium 9.7 mg/dL (8.4-10.2); Carbon Dioxide 22 mmol/L (22-30); Chloride 107 mmol/L (98-107); Estimated CRCL calculation 116 ml/min; Estimated Glomerular Filt Rate > 60; Glucose 117 mg/dL (65-110); Lipase 81 U/L (23-300); Potassium 4.1 mmol/L (3.4-5.0); Sodium 139 mmol/L (137-145)
[2025-02-12 21:10] LABS: INR 0.9; Partial Thromboplastin Time 24.8 Seconds (22.3-36.8)
[2025-02-12 21:20] LABS: Troponin I < 0.012 ng/mL (0.000-0.034)
[2025-02-13 00:43] VITALS: PULSE 66
[2025-02-13 01:16] LABS: Troponin I < 0.012 ng/mL (0.000-0.034)
--- OUTSIDE RECORDS SUMMARY | 2025-02-13 01:19 | XMS_ITS | Referral Summary ---
Author Organization [facility] Address [address] [place] [address] Care Team Providers Care Structural Steel Painter Name Role Phone Earl Price MD Unavailable Dat Tomas MD Unavailable Lizette Smith MD Unavailable [phone] Se Wolf MD Primary Care Provide r Dusty Scruggs MD Unavailable [phone] Encounters Date Type Department Care Team Description 11/18/2024 10:17 PM LEAD CUSTODIAN - 11/18/2024 11:50 PM [facility] Emergency [address] [address] Chronic right shoulder pain (Primary Dx) Discharge [...] 12 hr tabletIndications:C oronary artery disease involving [place] coronary artery of [place] heart without angina pectoris,Chest pain, unspecified type Take 1 tablet (500 mg total) by mouth 2 (two) times a day 60 tablet 11 4 04/20/20 25 Active clopidogreL (PLAVIX) 75 mg tabletIndications:C oronary artery disease involving [place] coronary artery of [place] heart without angina pectoris Take 1 tablet (75 mg total) by mouth daily 90 tablet 3 4 04/20/20 25 Active lisinopriL (PRINIVIL,ZESTRIL) 10 mg tabletIndications:P rimary hypertension Take 1 tablet (10 mg total) by mouth daily 90 tablet 3 4 04/20/20 25 Active metoprolol XL (TOPROL-XL) 50 mg extended release tabletIndications:C oronary artery disease involving [place] coronary artery of [place] heart without angina pectoris,Primary hypertension Take 1 tablet (50 mg total) by mouth 2 (two) times a day 180 tablet 3 4 04/20/20 25 Active nitroglycerin (NITROSTAT) 0.4 mg SL tabletIndications:C oronary artery disease involving [place] coronary artery of [place] heart without angina pectoris,Chest pain, unspecified type Place 1 tablet (0.4 mg total) under the tongue every 5 (five) minutes as needed for chest pain 90 tablet 4 Active rosuvastatin (CRESTOR) 40 mg tabletIndications:C oronary artery disease involving [place] coronary artery of [place] heart without angina pectoris,Mixed hyperlipidemia Take 1 [...] type 10/23/2023 Coronary artery disease invo lving [place] coronary artery of [place] heart without angina pectoris 10/23/2023 Hyperlipidemia 05/01/2022 Hypertension 05/01/2022 Resolved Problems Problem Noted Date Diagnosed Date Resolved Date Multi-vessel coronary artery stenosis 11/06/2023 01/08/2024 Social History Tobacco Use Types Packs/Day Years Used Date Smoking Tobacco: Never Smokeless Tobacco: Never Tobacco Cessation:Counseling Given: Not Answered [facility] Utilities Answer Date Recorded In the past [...] often do you attend chur ch or alevism services? Never 11/16/2023 Do you belong to any clubs o r organizations such as protestant groups, unions, fraternal or athletic groups, or [...] place to sleep or slept in a jail (including now)? No 11/16/2023 Personal Safety Answer [...] Comments Blood Pressure 120/66 11/18/2024 11:45 PM LEAD CUSTODIAN Pulse 61 11/18/2024 11:45 PM LEAD CUSTODIAN Temperature 36.6 C (97.9 F) 11/18/2024 8:16 PM LEAD CUSTODIAN Respiratory Rate 18 11/18/2024 11:45 PM LEAD CUSTODIAN Oxygen Saturation 98% 11/18/2024 11:45 PM LEAD CUSTODIAN Inhaled Oxygen Concentration - - Weight 97.1 kg (214 lb) 11/18/2024 8:34 PM LEAD CUSTODIAN Height 170.2 cm (5' 7) 11/18/2024 8:16 PM LEAD CUSTODIAN Body Mass Index 33.52 11/18/2024 8:16 PM LEAD CUSTODIAN Plan of Treatment Not on file Medical Devices Implanted Type Area Fleet Manager/Dispatch Device Identifier Shelf Expiration Date Model / Serial / Lot Meuugame Synergy Xd Monorail 3.5mm 24mm 144cm Delivery System 1 Access [id number] - [id number] Implanted:Qty: 1 on 04/22/2022 by Dat Tomas MD at [facility] Vericant Paul 12/09/2023 [id number] / / [id number] [employer] Paul Angio-Seal Vip 6fr Closere Device [id number] - [id number] Implanted:Qty: 1 on 10/26/2023 by Sin Lawler MD at [facility] N/A: Groin [employer] Paul 02/23/2024 [id number] / / [id number] Edgar Heck Distal Marker Radiology Stainless Steel Sterile [facility] - [id number] Implanted:Qty: 2 on 11/03/2023 by Dusty Scruggs MD at [facility] Left: Heart [employer] [id number] 02/12/2026 AM-D / / [id number] Jovel Vascular System Closure Repair Femoral Artery Suture Mediated Perclose Prostyle 45003-18 - [id number] Implanted:Qty: 1 on 04/08/2024 by Sin Lawler MD at [facility] [employer] 11/11/2025 95514-37 / / [id number] Procedures Procedure Name Priority Date/Time Associated Diagnosis Comments XR HUMERUS RIGHT 2 OR MORE VIEWS ED 11/18/2024 9:11 PM LEAD CUSTODIAN XR SHOULDER RIGHT 2 OR MORE VIEWS ED 11/18/2024 9:11 PM LEAD CUSTODIAN from Last 3 Months Results * XR Humerus Right 2 or More Views (11/18/2024 9:11 PM LEAD CUSTODIAN) Anatomical Region Laterality Modality Upper Extremities, Upper Arm Right Com puted Radiography 11/18/2024 9:22 PM LEAD CUSTODIAN Narrative 11/18/2024 9:29 PM LEAD CUSTODIAN EXAM DESCRIPTION: XR HUMERUS RIGHT 2 OR [...] by Fabian Salas M.D. T: Report ID: [id number] Reading Location: [id number] Procedure Note Fabian Salas, DO - 11/18/2024 [...] by Fabian Salas M.D. T: Report ID: [id number] Reading Location: [id number] us Isaias Soto MD IMBuddy XR PROCEDURES F inal Result * XR Shoulder Right 2 or More Views (11/18/2024 9:11 PM LEAD CUSTODIAN) Anatomical Region Laterality Modality Upper Extremities, Shoulder Right Comp uted Radiography 11/18/2024 9:22 PM LEAD CUSTODIAN Narrative 11/18/2024 9:29 PM LEAD CUSTODIAN EXAM DESCRIPTION: XR HUMERUS RIGHT 2 OR [...] by Fabian Salas M.D. T: Report ID: [id number] Reading Location: [place] [address] Procedure Note Fabian Salas, DO - 11/18/2024 [...] by Fabian Salas M.D. T: Report ID: [id number] Reading Location: [id number] Isaiasduke Soto MD IMG XR PROCEDURES F inal Result from Last 3 Months Insurance [facility] Advance Directives For more information, please contact: [phone] * Full Code (Latest Code Status on File) Date Activated Date Inactivated Comments 11/15/2023 8:34 PM 11/18/2023 5:34 PM * Full Code Date Activated Date Inactivated Comments 11/03/2023 2:59 PM 11/09/2023 11:11 PM * Full Code Date Activated Date Inactivated Comments 10/23/2023 11:52 PM 10/29/2023 8:14 PM * Full Code Date Activated Date Inactivated Comments 04/22/2022 11:25 PM 04/24/2022 8:49 PM Care Teams Structural Steel Painter Relationship Specialty Start Date End Date eS Wolf MD [address] [address] PCP - General Internal Medicine 03/04/24 [place] [address] [address] Consulting Physician Endocrinology Diabetes & Metabolism 04/24/22 Dat Tomas MD [address] [place] [address] Consulting Physician Cardiovascular Disease 04/24/22 Lizette Smith MD [address] [address] Consulting Physician Cardiology 11/18/23 Dusty Scruggs MD [address] [address] Thoracic Surgery 03/15/24
--- OUTSIDE RECORDS SUMMARY | 2025-02-13 01:19 | XMS_ITS ---
Author Organization [facility] Address [address] [place] [address] Care Team Providers Care Picture Hanger Name Role Phone Aki Diaz Unavailable [phone] Problems Problem Type SNOMED Code ICD Code Onset Dates Problem Status W/U Status Risk Notes Problem Chronic kidney disease stage 2 (706281609) Chronic kidney disease, stage 2 (mild) (N18.2) Active confirmed Problem Type II diabetes mellitus without complication (494409282) Type 2 diabetes mellitus without complications (E11.9) Active confirmed Problem Essential hypertension (08599797) Essential hypertension (I10) Active confirmed Problem Hyperlipidemia (92674081) Hyperlipidemia, unspecified (E78.5) Active confirmed Encounters Encounter Location Date Provider Diagnosis [facility] [place] [facility] [address] [place] [address] 08/19/2024 Aki Diaz Chronic kidney disease, stage [...] Vamshi SAHU MDOB: [birth year] (49 yo M)Acc No.[id number]:08/19/2024 Progress Notes Patient: Elvin Vamshi CARDONA Provider: Vinod RAY MD, F.A.C.P, F.A.S.N. :1975 A ge:48 Y S ex:Male Date:08/19/2024 Address:[facility] [place] [address] Subjective: * Chief Complaints: * * Medical History: Objective: * Vitals: Assessment: * Assessment: 1. C hronic kidney disease, stage 2 (mild) - N18.2 (Primary) 2 . T ype 2 diabetes mellitus without complications - E11.9 3 . E ssential hypertension - I10? 4. H yperlipidemia, unspecified - E78.5 Plan: * Treatment: * Billing Information: * Visit Code: 03407 Office Visit, New Pt., Level 5. * Procedure Codes: * Electronic signature of Luis Enrique Diaz MD on 02/13/2025 at 01:19 AM CDT Sign off status: Pending * Provider: Vinod RAY MD, F.AGabinoCGabinoP, F.A.S.N. Date: 10/20/2023 Generated for Printing/Faxing/eTransmitting on: 0 02/13/2025 01:19 AM CDT
--- OUTSIDE RECORDS SUMMARY | 2025-02-13 01:19 | XMS_ITS | Patient Health Record ---
Author Organization [facility] Address [address] [place] [address] Care Team Providers Care Freight Handler Name Role Phone Aki Diaz Unavailable [phone] Reason For Referral No Information Problems Problem Type SNOMED Code ICD Code Onset Dates Problem Status W/U Status Risk Notes Problem Type II diabetes mellitus without complication (389906923) Type 2 diabetes mellitus without complications (E11.9) Active confirmed Problem Hyperlipidemia (48774914) Hyperlipidemia, unspecified (E78.5) Active confirmed Problem Chronic kidney disease stage 2 (922835511) Chronic kidney disease, stage 2 (mild) (N18.2) Active confirmed Problem Essential hypertension (81148957) Essential hypertension (I10) Active confirmed Encounters Encounter Location Date Provider Diagnosis [facility] [place] [facility] [address] [place] [address] 08/19/2024 Aki Diaz Chronic kidney disease, stage [...]
--- OUTSIDE RECORDS SUMMARY | 2025-02-13 01:19 | XMS_ITS | CONTINUITY OF CARE DOCUMENT ---
Author Name oracio, awaisser Address Unknown Organization [facility] Address [address] [place] [address] Phone [phone] Care Team Providers Care Corking Machine Operator Name Role Phone Dat Tomas MD Unavailable Dat Tomas MD Unavailable DEVANTE THURMAN MD Unavailable PROBLEMS Condition Status Date Provider Notes Cardiology examination active Dat Tomas MD Diabetes mellitus active Dat Tomas MD HYPERTENSION active Dat Tomas MD Hyperlipidemia active Dat Tomas MD CAD active Dat Tomas MD Myocardial infarction active Dat Talbert CAD s/p CABG active Freda Boogiemikelley PAPER BOX MAKER ENCOUNTERS Date Type Provider Location Encounter Diag nosis 12/16 - 4 In-person encounter Office Visit Dat Tomas MD [facility] CAD s/p CABG 05/21 - 05/21 In-person encounter Office Visit Dat Tomas MD [facility] 11/13 - 11/14 In-person encounter Office Visit Dat Tomas MD [facility] 09/30 - 09/30 In-person encounter Office Visit Dat Tomas MD [facility] 06/09 - 06/09 In-person encounter Office Visit Dat Tomas MD [facility] 05/01 - 05/01 In-person encounter Office Visit Dat Tomas MD [facility] Cardiology examinationDiabetes mellitusHYPERTENSIONHyperlipidemiaCADMyocardial infarction VITAL SIGNS [...] er height E&M 67 [in_i] Marcelina Gruenenfe [facility] Body Mass Index (Ratio) 33.36 kg/m2 Viry Tomas MD blood pressure, cuff size large Ke rri Gruenenfelder blood pressure, diastolic 81 mm[Hg] Ke rri Gruenenfelder blood pressure, systolic 130 mm[Hg] Re ri Indrauenejohannyelder oxygen saturation, oximetry 98 % Marcelina Amandanejohannyelder respiratory rate E&M 16 /min Marcelina G miguelinaenenfelder pulse rate 74 /min Marcelina Gruenenfe er weight E&M 213 [lb_av] Marcelina Grtanyanenfe [facility] height E&M 67 [in_i] Marcelina Gruenenfe [facility] blood pressure, diastolic 78 mm[Hg] Li nkLogic [...] mg tablet,delayed release (DR/EC) active Freda Ventimiglia PAPER BOX MAKER isosorbide mononitrate 30 mg tablet extended release 24 hr active Freda Ventimiglia PAPER BOX MAKER tramadol 50 mg tablet active Freda Ventimiglia PAPER BOX MAKER clopidogrel 75 mg tablet active Take 1 tablet by mouth once a day Freda Boogiemiglia PAPER BOX MAKER aspirin 81 mg tablet,delayed release (DR/EC) active 1 tablet by mouth once a day TAKE 1 TABLET EVERY DAY Freda LLAMAS aspirin 81 mg tablet,delayed release (DR/EC) completed TAKE 1 TABLET BY MOUTH DAILY - Fredaaliya LLAMAS rosuvastatin 40 mg tablet active TAKE 1 TABLET BY MOUTH EVERY DAY AT BEDTIME Kallie Rushikelsie clopidogrel 75 mg tablet completed TAKE 1 [...] 1 TABLET TWICE A DAY - [facility] Crestor 5 mg tablet completed TAKE 1 TABLET BY MOUTH EVERY DAY - [place] Plavix 75 mg tablet completed TAKE 1 TABLET BY MOUTH ONCE DAILY - [facility] Specialist Jardiance 10 mg tablet completed Take [...] history of marijuana use no Freda Ventimiglia [facility] drug use no Freda Ventimig shari [facility] alcohol use no Freda Ventimig shari [facility] smoking status Never smoker Dat Tomas MD [...] Payer name Policy type / Coverage type [place] [employer] green party ID [employer]ICA[employer] Medicaid [id number] ADVANCE DIRECTIVES Name Date DISCUSSED - NO DECISION MADE TREATMENT PLAN Date Name Performer [id number],S, Dat Tomas MD [id number],W, B P today: 146/81 P rior BP: 114/74 (11/13/2022) Dat Tomas MD [id number],C,H ave encouraged him to find a PCP, will check an A1C Dat Tomas MD [id number],C,W e need to make sure his LDL is as low as possible so check his. We will check labs. Also check nuclear stress test Dat Tomas MD [id number],C,I mproved. Increased metformin to 1000 mg bid. Dat Tomas MD [id number],C, C heck lipid panel and lp(a) H is updated medication list for this problem includes: Crestor 40 Mg Tablet (Rosuvastatin) ..... Take 1 tablet by mouth everyday at bedtime Dat Tomas MD [id number],C, B P today: 114/74 P rior BP: [...] by mouth once daily Dat Tomas MD [id number],S,S table. Continue medical therapy. Will start atorvastatin 80mg once daily and stop his rosuvastatin. Will check some labs. Dat Tomas MD [id number],S, B P today: 130/81 P rior BP: 128/78 (06/09/2022) Dat Tomas MD [id number],S,Per PCP Dat Tomas MD [id number],S,C hanged rosuvastain to atorvstatin 80mg once daily Dat Tomas MD [id number],S, B P today: 128/78 P rior BP: 109/63 (05/01/2022) Dat Tomas MD [id number],C,W e will continue aspirin, plavix, statin Dat Tomas MD [id number],S,H e has multivessel CAD but it is not in my opinion easily amenable to PCI or CABG Dat Tomas MD [id number],S, Dat Tomas MD [id number],S,W e need his PCP to treat his diabetes efficiently Dat Tomas MD [id number],C, B P today: 128/78 P rior BP: 109/63 (05/01/2022) Dat Tomas MD [id number],S,H 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 His distal LAD [...] to seek medical advice. Dat Tomas MD [id number],S,H as began cholesterol meds. Dat Tomas MD [id number],C, B P today: 109/63 Dat Tomas MD [id number],C,H is blood sugars are still running in [...] take one tablet by mouth once daily [facility]G 11/03/2023 had TERRAZAS to [...]
--- OUTSIDE RECORDS SUMMARY | 2025-02-13 01:19 | XMS_ITS | Clinical Summary ---
Author Organization [facility] Address [address] [place] [address] Care Team Providers Care Poultry Cleaner Name Role Phone Earl Price MD Unavailable [phone] Dat Tomas MD Unavailable Lizette Smith MD Unavailable Se Wolf MD Primary Care Provide r Dusty Scruggs MD Unavailable Allergies No known active allergies Medications empagliflozin [...] 12 hr tabletIndications:C oronary artery disease involving [place] coronary artery of [place] heart without angina pectoris,Chest pain, unspecified type Take 1 tablet (500 mg total) by mouth 2 (two) times a day 60 tablet 11 4 04/20/20 25 Active clopidogreL (PLAVIX) 75 mg tabletIndications:C oronary artery disease involving [place] coronary artery of [place] heart without angina pectoris Take 1 tablet (75 mg total) by mouth daily 90 tablet 3 4 04/20/20 25 Active lisinopriL (PRINIVIL,ZESTRIL) 10 mg tabletIndications:P rimary hypertension Take 1 tablet (10 mg total) by mouth daily 90 tablet 3 4 04/20/20 25 Active metoprolol XL (TOPROL-XL) 50 mg extended release tabletIndications:C oronary artery disease involving [place] coronary artery of [place] heart without angina pectoris,Primary hypertension Take 1 tablet (50 mg total) by mouth 2 (two) times a day 180 tablet 3 4 04/20/20 25 Active nitroglycerin (NITROSTAT) 0.4 mg SL tabletIndications:C oronary artery disease involving [place] coronary artery of [place] heart without angina pectoris,Chest pain, unspecified type Place 1 tablet (0.4 mg total) under the tongue every 5 (five) minutes as needed for chest pain 90 tablet 4 Active rosuvastatin (CRESTOR) 40 mg tabletIndications:C oronary artery disease involving [place] coronary artery of [place] heart without angina pectoris,Mixed hyperlipidemia Take 1 [...] type 10/23/2023 Coronary artery disease invo lving [place] coronary artery of [place] heart without angina pectoris 10/23/2023 Hyperlipidemia 05/01/2022 Hypertension 05/01/2022 Resolved Problems Problem Noted Date Diagnosed Date Resolved Date Multi-vessel coronary artery stenosis 11/06/2023 01/08/2024 Encounters Date Type Department Care Team Description 11/18/2024 10:17 PM HAND ETCHER HELPER - 11/18/2024 11:50 PM HAND ETCHER HELPER Emergency [facility] [address] [place] [address] Chronic right shoulder pain (Primary Dx) Discharge Disposition: Discharge to home or self care from Last 3 Months Surgical History Surgery Date Site/Laterality Comments CORONARY ANGIOPLASTY WITH STENT PLACEMENT 04/14/2022 - 05/14/2022 ANGEL X2 CARDIAC CATHETERIZATION 10/15/2023 - 11/12/2023 Severe LAD disease, occluded PDA that fills with lovw-av-qigaa collaterals, and severe stenosis in an OM [...] Tobacco: Never Tobacco Cessation:Counseling Given: Not Answered [facility] Utilities Answer Date Recorded In the past 12 months has [employer] gas, oil, or water [employer] threatened to shut off services in your [...] often do you attend chur ch or hoahaoism services? Never 11/16/2023 Do you belong to any clubs o r organizations such as islam groups, unions, fraternal or athletic groups, or [...] place to sleep or slept in a correction (including now)? No 11/16/2023 Personal Safety Answer [...] Comments Blood Pressure 120/66 11/18/2024 11:45 PM HAND ETCHER HELPER Pulse 61 11/18/2024 11:45 PM HAND ETCHER HELPER Temperature 36.6 C (97.9 F) 11/18/2024 8:16 PM HAND ETCHER HELPER Respiratory Rate 18 11/18/2024 11:45 PM HAND ETCHER HELPER Oxygen Saturation 98% 11/18/2024 11:45 PM HAND ETCHER HELPER Inhaled Oxygen Concentration - - Weight 97.1 kg (214 lb) 11/18/2024 8:34 PM HAND ETCHER HELPER Height 170.2 cm (5' 7) 11/18/2024 8:16 PM HAND ETCHER HELPER Body Mass Index 33.52 11/18/2024 8:16 PM HAND ETCHER HELPER Plan of Treatment Health Maintenance Due Date Last Done Comments Colon Cancer Screening-Colonoscopy 1975 Depression Screening 1975 Hepatitis C Screening 1975 DTaP/Tdap/Td Vaccine (1 - Tdap) 1986 Hepatitis B Screening 1993 Regular Well Visit/Exam 18-64 1993 Influenza Vaccine (Season Ended) 2025 Pneumococcal vaccine <65 Aged Out No longer eligible based on patient's age to complete this topic Medical Devices Implanted Type Area Mercantile Agent Device Identifier Shelf Expiration Date Model / Serial / Lot [email or web address] Synergy Xd Monorail 3.5mm 24mm 144cm Delivery System 1 Access [id number] - [id number] Implanted:Qty: 1 on 04/22/2022 by Dat Tomas MD at [facility] [email or web address] 12/09/2023 [id number] / / [id number] Dejamor Angio-Seal Vip 6fr Closere Device [id number] - [id number] Implanted:Qty: 1 on 10/26/2023 by Sin Lawler MD at [facility] N/A: [employer]in [email or web address] 02/23/2024 [id number] / / [id number] TRIRIG[employer] Heck Distal Marker Radiology Stainless Steel Sterile Amgm-D - [id number] Implanted:Qty: 2 on 11/03/2023 by Dusty Scruggs MD at [facility] Left: Heart TRIRIGA [id number] 02/12/2026 AMGM-D / / [id number] Jovel V[employer] System Closure Repair Femoral Artery Suture Mediated Perclose Prostyle 67781-01 - [id number] Implanted:Qty: 1 on 04/08/2024 by Sin Lawler MD at [facility] [employer] 11/11/2025 [id number] / / [id number] Procedures Procedure Name Priority Date/Time Associated Diagnosis Comments XR HUMERUS RIGHT 2 OR MORE VIEWS ED 11/18/2024 9:11 PM HAND ETCHER HELPER XR SHOULDER RIGHT 2 OR MORE VIEWS ED 11/18/2024 9:11 PM HAND ETCHER HELPER from Last 3 Months Results * XR Humerus Right 2 or More Views (11/18/2024 9:11 PM HAND ETCHER HELPER) Anatomical Region Laterality Modality Upper Extremities, Upper Arm Right Com puted Radiography 11/18/2024 9:22 PM HAND ETCHER HELPER Narrative 11/18/2024 9:29 PM HAND ETCHER HELPER EXAM DESCRIPTION: XR HUMERUS RIGHT 2 OR [...] by Fabian Salas M.D. T: Report ID: [id number] Reading Location: [id number] Procedure Note Fabian Salas, - 11/18/2024 EXAM [...] by Fabian Salas M.D. T: Report ID: [id number] Reading Location: [id number] Isaias Soto MD IM XR PROCEDURES F inal Result * XR Shoulder Right 2 or More Views (11/18/2024 9:11 PM HAND ETCHER HELPER) Anatomical Region Laterality Modality Upper Extremities, Shoulder Right Comp uted Radiography 11/18/2024 9:22 PM HAND ETCHER HELPER Narrative 11/18/2024 9:29 PM HAND ETCHER HELPER EXAM DESCRIPTION: XR HUMERUS RIGHT 2 OR [...] by Fabian Salas M.D. T: Report ID: [id number] Reading Location: [id number] Procedure Note Fabian Salas DO - 11/18/2024 [...] by Fabian Salas M.D. T: Report ID: [id number] Reading Location: [place] [address] Iasias Soto MD IMG XR PROCEDURES F inal Result from Last 3 Months Insurance [facility] Advance Directives For more information, please contact: [phone] * Full Code (Latest Code Status on File) Date Activated Date Inactivated Comments 11/15/2023 8:34 PM 11/18/2023 5:34 PM * Full Code Date Activated Date Inactivated Comments 11/03/2023 2:59 PM 11/09/2023 11:11 PM * Full Code Date Activated Date Inactivated Comments 10/23/2023 11:52 PM 10/29/2023 8:14 PM * Full Code Date Activated Date Inactivated Comments 04/22/2022 11:25 PM 04/24/2022 8:49 PM Care Teams Poultry Cleaner Relationship Specialty Start Date End Date Se Wolf MD [address] [facility] [address] [place] [address] PCP - General Internal Medicine 03/04/24 [place] [address] [facility] [address] [address] Consulting Physician Endocrinology Diabetes & Metabolism 04/24/22 Dat Tomas MD [address] [place] [address] Consulting Physician Cardiovascular Disease 04/24/22 Lizette Smith MD [address] [facility] [address] [place] [address] [address] Consulting Physician Cardiology 11/18/23 Dusty Scruggs MD [address] [address] Thoracic Surgery 03/15/24
--- OUTSIDE RECORDS SUMMARY | 2025-02-13 01:19 | XMS_ITS ---
Author Organization [facility] Address [address] [facility] [address] [facility] [address] [place] [address] Care Team Providers Care Entry Level Java Developer Name Role Phone Aki Diaz Unavailable [phone] Encounters Encounter Location Date Provider Diagnosis [facility] [address] [facility] [address] [place] [address] 07/01/2024 Aki Diaz Plan Of Treatment No Information Progress Notes * Vamshi SAHU MDOB: [birth year] (49 yo M)Acc No.[id number]:07/01/2024 Progress Notes Patient: Elvin MARCANOVamshi Obrien Provider: Vinod RAY MD, Igor.Lynette.C.P, F.A.S.N. :1975 A ge:48 Y S ex:Male Date:07/01/2024 Address:[address] [place] [address] Subjective: * Chief Complaints: * * Medical History: Objective: * Vitals: Assessment: Plan: * Treatment: * Billing Information: * Visit Code: * Procedure Codes: * Electronic signature of Luis Enrique Diaz MD on 02/13/2025 at 01:19 AM CDT Sign off status: Pending * Provider: Vinod RAY MD, Igor.Lynette.C.P, F.A.S.N. Date: Generated for Printing/Faxing/eTransmitting on: 02/13/2025 01:19 AM CDT
--- OUTSIDE RECORDS SUMMARY | 2025-02-13 01:19 | XMS_ITS | Data Portability ---
Author Organization [place] - [facility], Main Office Address [address] [place] [address] Care Team Providers Care Plant Protection Supervisor Name Role Phone LIANNE WOLF Primary Care Provider [phone] LIANNE WOLF Referring Provider Assessment Encounter Date Assessment Date Assessment LastModified by Organization Details LastModified Time 12/28/2024 12/28/2024 04/05/2024: A1C 9.0 Gluc 189 12/07/2024: A1C 9.2 Gluc 172 AST 68 Chol 251, LDL 177 [email or web address] Not available 12/28/2024 17:47:50 01/11/2025 01/11/2025 49-year-old patient presents today with right shoulder pain that has been going on since October of last year and getting increasingly worse. He states at that time he had open heart surgery. In the weeks following he started to have pain in the right shoulder. He denies any specific injury. States that the pain is gotten to the point where he can not lift the arm without pain and he can not sleep at night. For treatment he has tried Tylenol, ice, and lidocaine patches, which have not helped. He is unable to take NSAIDs due to being on a blood thinner. Review of systems per patient questionnaire imaging: X-rays reviewed show no acute bony abnormality, no fracture. Preserved joint spaces. Physical exam: Tenderness with palpitation over posterior shoulder. Range of motion 90/ 20/back pocket. Pain with resisted elevation. 4/5 rotator cuff strength. Positive Jesu's, Neer, Dunn. Sensation intact throughout. We will first start with a course of physical therapy to help work on range of motion and strength. He can continue to take Tylenol for pain. We will try a cortisone injection so he is able to do more with therapy. We will see him back in 4-6 weeks if he is still experiencing symptoms and likely order an MRI. He is in agreement with this plan. [email or web address] Not available 01/11/2025 17:23:59 Plan of Treatment Reminders Order Date Submit Date Provider Last Modified By Organization Details Last Modified Time Details Appointments Any 5 2024 02:55P M Elijah Staples MD Not available Not available Not available Any 15 2024 04:30P Shirley stephens MD Not available Not available Not available Lab lipid panel, serum [address] (Lab), [address] [place], [address], 12/28/2024 18:21:24 TSH, serum or plasma [address] (Lab), [address] [place], [address], 12/28/2024 18:21:24 CBC w/ auto diff [address] (Lab), [address] [place], [address], 12/28/2024 18:21:25 CMP, serum or plasma [address] (Lab), [address] [place], [address], 12/28/2024 18:21:25 glycohemo globin, total, blood [address] (Lab), [address] [place], [address], 12/28/2024 18:21:26 microalbu min, urine [address] (Lab), [address] [place], [address], 12/28/2024 18:21:26 gamma-glu tamyl transfera se (ggt), serum [address] (Lab), [address] [place], [address], 01/05/2025 18:06:59 hepatitis panel (A+B+C), acute, serum [address] (Lab), [address] [place], [address], 01/05/2025 18:07:08 Referral physical therapist referral - Please contact pt for R shoulder. THanks 2024 [facility], [address], [place], [address], 01/12/2025 08:23:59 nephrolog ist referral - Please call patient to schedule an appointme nt. Thank you. 2024 025 KELLY Diaz MD (Nephrology, [address], [address], [place], [address], 01/02/2025 16:10:36 podiatris t referral - Please call patient to schedule an appointme nt. Thank you. 2024 025 GILDARDO Toney DPM, [address] [facility], [facility], [place], [address], 12/29/2024 14:10:39 cardiolog ist referral - Please call patient to schedule an appointme nt. Thank you. 2024 025 KELLY Art Cardiovascula r, [address] [facility], [address], [place], [address], 01/02/2025 12:00:44 orthopedi c surgeon referral - Please call patient to schedule an appointme nt. Thank you. 2024 025 GILDARDO Staples MD, [address] [facility], [place], [address], 01/11/2025 17:38:26 Procedures injection /aspirati on joint/bur sa (PROC) 2024 025 [email or web address] 1 In-Office Order, Internal Use Only DO Not Attach Compendium DO Not Attach Compendium, Do Not Delete/merge, [id number] 01/11/2025 16:29:57 upper endoscopy procedure (EGD) (PROC) [address] (Pre-Screen), [address] [place], [address], 01/25/2025 15:14:25 upper endoscopy procedure (EGD) (PROC) - Please call patient to schedule an appointme nt. Thank you. 2024 025 [email or web address] Shanelle Irizarry MD, [address] [facility] [address], [place], [address], 01/02/2025 11:10:06 colonosco py screening (PROC) - Please call patient to schedule an appointme nt. Thank you. 2024 025 hrushingMaxine Irizarry MD, [address] [facility] [address], [place], [address], 01/02/2025 11:08:14 Surgeries None recorded. Imaging US, liver - Please call patient to schedule. 2024 025 [facility] ([facility] Scheduling), [address] [place], [address], 02/10/2025 04:19:39 Medication Orders bupivacai ne HCl 0.5 % (5 mg/mL) injection solution 2024 025 [email or web address] [facility] #[id number], [address], [place], [place], [id number], 01/11/2025 23:10:26 Kenalog 10 mg/mL suspensio n for injection 2024 025 [email or web address] [facility] #23876, [address], [place], [place], [id number], 01/11/2025 23:10:26 Golytely 236 gram-22.7 4 gram-6.74 gram-5.86 gram oral solution 2024 025 [facility], [address], [place], [place], [id number], 01/04/2025 14:38:47 Tresiba FlexTouch U-100 insulin 100 unit/mL (3 mL) subcutane ous pen 2024 025 [email or web address] #89169, [address], [place], [place], [id number], 01/11/2025 15:45:51 Diflucan 150 mg tablet 2024 025 [email or web address] [facility] #99649, [address], [id number], 12/28/2024 17:36:32 ketoconaz ole 2 % topical cream 2024 025 [facility] #82013, [address], [place], [place], [id number], 01/11/2025 15:45:42 Patient TargetsNo targets recorded. Patient Instructions Encounter Date Encounter Id Patient Instructions Last Modified By Organization Details Last Modified Time 01/04/2025 [id number] cardiac clearance* ATHENAFAX Not available 01/19/2025 13:13:50 GOLYTELY [email or web address] Not available 12/14 14:35:21 PT WITH GERD SX . NEED TO R/O PUD/ H. PYLORI . RECOMMEND AN EGD . PT NEEDS A SCREENING COLON . R/O POLYP . RECOMMEND A COLONOSOPY . RISKS BENEFITS AND COMPLICATIONS WERE EXPLAINED TO PT . ( BLEEDING , PERFORATION , INFECTION , ) PT VERBALIZES UNDERSTANDING AND IS WILLING TO PROCEDE . [email or web address] Not available 01/04/2025 14:38:25 Reason for Referral Personnel Security Assistant Referral for Type 2 diabetes mellitus without complication Please call patient to schedule an appointment. Thank you. Referring Physician: Lianne Wolf, Internal Medicine, Encounter Date: 12/28/2024 Ems Manager Referral for Pr oteinuria Please call patient to schedule an appointment. Thank you. Referring Physician: Lianne oWlf, Internal Medicine, Encounter Date: 12/28/2024 Information Technology Program Manager Referral for Co ronary arteriosclerosis Please call patient to schedule an appointment. Thank you. Referring Physician: Lianne Wolf, Internal Medicine, Encounter Date: 12/28/2024 Orthopedic Surgeon Referral for Pain of right shoulder joint Please call patient to schedule an appointment. Thank you. Referring Physician: Lianne Wolf, Internal Medicine, Encounter Date: 12/28/2024 Physical Therapist Referral for Pain of right shoulder joint R shoulder Please contact pt for R shoulder. THanks Referring Physician: Gabriela Armendariz, Orthopedic Surgery, Encounter Date: 01/11/2025 Results Created Date Observation Date Name Description Value Unit Range Abnormal Flag Note LastModifiedBy Organization Detail LastModifiedTime 01/05/20 25 01/04/2025 US, abdom en, limit ed [facility] [address], [facility] [place] [address] Patien t Name: MILTON WALSH Access ion #: [id number] Sex: M : 1975 2 Locati on: RAD Attend ing Physic jermain: BAHRAI NWALA, MURTUZ A Orderi ng Physic jermain: REMIGIO PANTOJA Exam Date: 9:24 AM Exam Name: US ABDOME N SINGLE ORGAN Admitt ing Diagno sis(es ): RADIOL OGY REPORT - FINAL EXAM: US ABDOME N SINGLE ORGAN HISTOR Y: elevat ed liver enzyme s 49-yea r-old male with elevat ed LFTs, histor y of open heart surger y Januar y 2024, histor y of diabet es. COMPAR GURVINDER: CT scan of the abdome n and pelvis dated 2018 was not made availa ble on the PAC system for viewin g. TECHNI QUE: Right upper quadra nt ultras ound was perfor med. FINDIN GS: No gallst ones, gallbl adder wall thicke joao, or perich olecys tic free fluid. The patien t was not tender to transd ucer pressu re over the gallbl adder. No intrah epatic biliar y ductal dilata tion or liver mass. The liver measur es 19.4 cm longit udinal . There is hepato petal portal venous color Dopple r flow. Page 1 of 2 [facility] Patien t Name: MILTON WALSH Access ion #: [id number] Sex: M : 1975 2 Exam Date: 9:24 AM Exam Name: US ABDOME N SINGLE ORGAN Admitt ing Diagno sis(es ): The common duct measur es 5.9 mm in diamet er. The pancre as, abdomi nal aorta, and IVC are not well visual ized sonogr aphica lly, possib ly due to overly ing bowel gas. The right kidney measur es 10.5 cm in length and is normal in appear ance. IMPRES AGNES: 1. Hepato megaly . 2. Otherw ise unrema rkable right upper quadra nt ultras ound. Create d and electr onical ly signed by: Elijah ellis MD Signed Date: 6:16 PM (CT) Dictat ed by: Elijah ellis MD DD: 4/23/2 025 6:16 PM (CT) DT: 025 6:16 PM (CT) Page 2 of 2 [facility] (Imaging) [address], [place], [address], 01/11/2025 13:11:00 Result Notes None recorded. Problems Name Problem SNOMED Code Status Onset Date Resolution Date Notes Provider Name and Address Organization Details Recorded Time Hyperlipid emia 93581392 Active 2018 Not Available [facility] 3 00:05:12 Diabetes mellitus 38055525 Active 2018 Not Available [facility] 3 00:05:12 Essential hypertensi on 03574662 Active 2023 Lianne lofton MD [address], [address], [place], [address] , [employer] 4 15:59:24 Gastroesop hageal reflux disease without esophagiti s 166101580 Active 2023 Lianne lofton MD [address], [address], [place], [address] , [employer] 4 16:01:02 Type 2 diabetes mellitus without complicati on 214303387 Active 2023 Lianne lofton MD [address], [address], [place], [address] , [employer] 4 16:02:18 Coronary arterioscl erosis 65043595 Active 2023 Lianne lofton MD [address], [address], [place], [address] , [employer] 4 16:21:03 Proteinuri a 19763676 Active 2023 Lianne lofton MD [address], [place], [address] , [employer] 4 17:28:53 Skin tag 983570820 Active 2023 Lianne lofton MD [address], [address], [place], [address] , [facility] [employer] [facility] 4 18:50:43 Multiple skin tags 805089695 Active 2023 Mazin sheikh MD [address], [address], [place], [address] , [facility] [employer] [facility] [employer] [facility] 4 16:40:05 Tinea pedis 6677274 Active 2024 Caio Collier RMLynette christopher, [place] - [facility] [employer] [facility] 5 16:33:23 Onychomyco sis of toenails 527975379 Active 2024 JEANETTE Branch, [facility] [employer] [facility] 5 16:12:49 Liver enzymes level above reference range 254853392 Active 2024 Lianne lofton MD [address], [address], [place], [address] , [facility] [employer] [facility] 5 18:22:56 Pain of right shoulder joint 1647796134721 9100 Active 2024 Betsy Ajitmicha christopher, [facility] [employer] [facility] 5 15:51:10 Hepatomega ly 14851107 Active 2024 JEANETTE Ness null, [facility] [employer] [facility] 5 13:11:51 Problem Notes None recorded. Procedures Surgical History Date Name Laterality Status Provider Name and Address Organization Details Recorded Time 5 Ortho - Cortisone Injection completed Gabriela Armendariz NP [address], [address], [place], [address], [facility] [employer] [facility] 01/11/2025 17:24:27 5 Nail Debridement completed Adrian Juan DPM [address], [address], [place], [address], [place] [facility] 12/26/2024 09:20:02 4 Excision Cyst Multilayer completed Mazin marquez MD [address] [facility], [facility] [address], [place], [address], [facility] 06/28/2024 17:43:40 4 Bypass completed Juventino Horton LPN [facility] 05/19/2024 17:21:46 Cabg vein three completed JEANETTE Ness [facility] 12/17/2023 15:25:19 Imaging Results None recorded. Procedure Notes None recorded. Medical Equipment None Reported. Allergies No known drug allergies Medications Name Sig Start Date Stop Date Status Note LastModified by Organization Details LastModified Time cyclobenzap rine 10 mg tablet 08/20 completed Not Available Not Available Not Available metformin 500 mg tablet TAKE 1 TABLET BY MOUTH TWICE DAILY 08/20 completed Not Available Not Available Not Available atorvastati n 80 mg tablet TAKE 1 TABLET BY MOUTH EVERY EVENING 05/19 completed Not Available Not Available Not Available atorvastati n 20 mg tablet TAKE 1 TABLET BY MOUTH EVERY DAY 08/20 completed Not Available Not Available Not Available clindamycin HCl 300 mg capsule TAKE 1 CAPSULE BY MOUTH EVERY 8 HOURS FOR 7 DAYS 08/20 completed Not Available Not Available Not Available aspirin 325 mg tablet TAKE 1 TABLET BY MOUTH EVERY DAY 12/16 completed Not Available Not Available Not Available fluconazole 150 mg tablet TAKE 1 TABLET BY MOUTH EVERY WEEK 12/28 completed Not Available Not Available Not Available benzonatate 200 mg capsule 12/16 completed Not Available Not Available Not Available metoprolol succinate ER 50 mg tablet,exte nded release 24 hr TAKE 1 TABLET BY MOUTH TWICE DAILY EVERY DAY active Not Available Not Available No t Available bupivacaine HCl 0.5 % (5 mg/mL) injection solution Take 4 mL by injection route. 2024 active Not Available Not Available Not Avai lable isosorbide mononitrate ER 30 mg tablet,exte nded release 24 hr Take 1 tablet every day by oral route for 30 days. 05/19 completed Not Available Not Available Not Available clopidogrel 75 mg tablet TAKE 1 TABLET BY MOUTH DAILY active Not Available Not Available No t Available aspirin 81 mg tablet,gabriella yed release TAKE 1 TABLET BY MOUTH DAILY active Not Available Not Available No t Available tramadol 50 mg tablet TAKE 1/2 TABLET BY MOUTH EVERY 6 HOURS NEEDED FOR PAIN FOR UP TO 5 DAYS 05/19 completed Not Available Not Available Not Available glimepiride 2 mg tablet TAKE 1 TABLET BY MOUTH EVERY DAY 08/20 completed Not Available Not Available Not Available oxycodone-a cetaminophe n 5 mg-325 mg tablet 03/09 completed Not Available Not Available Not Available Kenalog 10 mg/mL suspension for injection Take 1 mL by injection route. 2024 active [facility]: 0003- 0494- 20 Not Available Not Available Not Available pantoprazol e 40 mg tablet,gabriella yed release Take 1 tablet every day by oral route for 28 days. 05/19 completed Not Available Not Available Not Available metformin 1,000 mg tablet TAKE 1 TABLET BY MOUTH TWICE DAILY active Not Available Not Available No t Available lisinopril 10 mg tablet TAKE 1 TABLET BY MOUTH EVERY DAY active Not Available Not Available No t Available glimepiride 4 mg tablet TAKE 1 TABLET BY MOUTH EVERY DAY*PLEAS E MAKE A REGULAR APPT* 08/20 completed Not Available Not Available Not Available lidocaine 5 % topical patch APPLY 1 PATCH ONTO THE SKIN DAILY. REMOVE AND DISCARD OF PATCH AFTER 12 HOURS active Not Available Not Available No t Available ibuprofen 400 mg tablet Take 1 tablet 3 times a day by oral route as needed for 30 days. 05/19 completed Not Available Not Available Not Available nitroglycer in 0.4 mg sublingual tablet DISSOLVE 1 TABLET UNDER THE TONGUE EVERY 5 MINUTES NEEDED FOR CHEST PAIN active Not Available Not Available No t Available lisinopril 5 mg tablet TAKE 1 TABLET BY MOUTH EVERY DAY 08/20 completed Not Available Not Available Not Available mupirocin 2 % topical ointment APPLY TOPICALLY IN EACH NOSTRIL TWICE DAILY BEFORE SURGERY FOR 5 DAYS 11/22 completed Not Available Not Available Not Available metoprolol succinate ER 25 mg tablet,exte nded release 24 hr TAKE 1 TABLET BY MOUTH EVERY 12 HOURS 08/20 completed Not Available Not Available Not Available ketoconazol e 2 % topical cream APPLY TOPICALLY TO THE AFFECTED AREA DAILY 01/11 completed Not Available Not Available Not Available amoxicillin 875 mg-tammy joe clavulanate 125 mg tablet TK 1 T PO Q 12 H 03/28 completed Not Available Not Available Not Available rosuvastati n 5 mg tablet TAKE 1 TABLET BY MOUTH EVERY DAY 08/20 completed Not Available Not Available Not Available rosuvastati n 40 mg tablet TAKE 1 TABLET BY MOUTH EVERY DAY AT BEDTIME active Not Available Not Available No t Available GaviLyte-G 236 gram-22.74 gram-6.74 gram-5.86 gram oral solution MIX AND DRINK DIRECTED active Not Available Not Available No t Available Contour Next Test Strips TEST BID 01/11 completed Not Available Not Available Not Available Jardiance 10 mg tablet TAKE 1 TABLET BY MOUTH EVERY DAY active Not Available Not Available No t Available Tresiba FlexTouch U-100 insulin 100 unit/mL (3 mL) subcutaneou s pen Inject 15 units every day by subcutane ous route at dinner for 90 days. 01/11 completed Not Available Not Available Not Available Vitals Date Recorded Body height Body mass index (BMI) Body weight Oxygen saturation Oxygen saturation in Arterial blood by Pulse oximetry Body temperature Heart rate Provider Name and Address Organization Details Last Updated DateTime 5 170.18 cm 33.2 kg/m2 23926.5 8 g 96 % 96 % 98.2 [degF] 84 /min Caio Collier Lynette [facility] [employer] [facility] 5 16:17:50 Date Recorded Body height Body mass index (BMI) Body weight Oxygen saturation Oxygen saturation in Arterial blood by Pulse oximetry Body temperature Heart rate Provider Name and Address Organization Details Last Updated DateTime 5 170.18 cm 33.2 kg/m2 57531.5 8 g 98 % 98 % 98.2 [degF] 99 /min Caio Collier [facility] [employer] [facility] 5 16:02:50 Date Recorded Body height Body mass index (BMI) Body weight Body temperature Heart rate Oxygen saturation Oxygen saturation in Arterial blood by Pulse oximetry Systolic blood pressure Diastolic blood pressure Provider Name and Address Organization Details Last Updated DateTime 5 170.18 cm 32.7 kg/m2 37379.8 1 g 98.3 [degF] 80 /min 96 % 96 % 120 mm[Hg] 70 mm[Hg] Susan Barrera MA [employer] 17:35:23 Date Recorded Body height Body mass index (BMI) Body weight Heart rate Oxygen saturation Oxygen saturation in Arterial blood by Pulse oximetry Systolic blood pressure Diastolic blood pressure Provider Name and Address Organization Details Last Updated DateTime 170.18 cm 33.8 kg/m2 40780.9 5 g 76 /min 98 % 98 % 124 mm[Hg] 82 mm[Hg] Karol López Lynette [employer] 14:18:50 Date Recorded Body height Body mass index (BMI) Body weight Provider Name and Address Organization Details Last Updated DateTime 01/11/2025 170.18 cm 33.8 kg/m2 97916.95 g Betsy Khanmons [employer] 01/11/2025 15:45:03 Social History Question Answer Notes LastModified by Organizat ion Details LastModified Time Tobacco Smoking Status Never Smoker JEANETTE Ness, [employer] 12/17/2023 15:33:12 Do You Have An Advance Directive? No Information not available 12/17/2023 What Is Your Level Of Caffeine Consumption? Heavy Information not available 12/17/2023 In The 14 Days Before Symptom Onset, Have You Had Close Contact With A Laboratory-confir med COVID-19 While That Case Was Ill? No Information not available 12/17/2023 In The 14 Days Before Symptom Onset, Have You Had Close Contact With A Person Who Is Under Investigation For COVID-19 While That Person Was Ill? No Information not available 12/17/2023 What Type Of Diet Are You Following? REGULAR Information not available 12/17/2023 What Is The Highest Grade Or Level Of School You Have Completed Or The Highest Degree You Have Received? [id number] Information not available 12/17/2023 Have There Been Any Changes To Your Family Or Social Situation? No [email or web address] Information no t available 12/28/2024 What Is The Fluoride Status Of Your Home? Unknown Information not available 12/17/2023 Are There Any Guns Present In Your Home? No Information not available 12/17/2023 Do You Use Insect Repellent Routinely? No Information not available 12/28/2024 Where Do You Live? SingleLevelHouse Information not available 12/17/2023 Do You Have A Medical Power Of Tool Engineer? No Information not available 12/17/2023 What Was The Date Of Your Most Recent Tobacco Screening? 12/28/2024 Information not available 12/28/2024 Do You Have Any Pets? Yes Information not available 12/17/2023 What Is Your Relationship Status? Information not available 12/17/2023 Do You Use Your Seat Belt Or Car Seat Routinely? Yes Information not available 12/17/2023 Do You Have Smoke And Carbon Monoxide Detectors In Your Home? Yes Information not available 12/17/2023 Are You Passively Exposed To Smoke? No Information no t available 12/17/2023 Are There Any Smokers In Your House? No Information not available 12/17/2023 Do You Use Sunscreen Routinely? No Information not available 12/28/2024 Has Tobacco Cessation Counseling Been Provided? No N/a Information not available 12/17/2023 Have You Recently Traveled Abroad? No Information not available 12/17/2023 Do You Have Any Dietary Restrictions? No Information not available 12/28/2024 Sex: Unknown Functional Status Question Answer Note LastModified by Organizat ion Details LastModified Time Do you use any illicit or recreational drugs? No Information not available 12/17/2023 Do you or have you ever used any other forms of tobacco or nicotine? No Information not available 12/17/2023 What is your level of alcohol consumption? None Information not available 12/17/2023 Are you currently employed? Yes Information not available 12/17/2023 What is your exercise level? Occasional Information not available 12/17/2023 Mental Status Question Answer Note LastModified by Organization D etails LastModified Time Do you feel stressed (tense, restless, nervous, or anxious, or unable to sleep at night)? [id number] Information not available 12/17/2023 Family History Relationship Description Onset Age of this Age Resolved Age Notes LastModified by Organization Details LastModified Time Father Coronary artery bypass graft Not available 12/2023 15:28:39 Father Heart disease [email or web address] Not available 2024 15:46:16 Father Hypertensive disorder [email or web address] Not available 2024 15:47:02 Father Diabetes mellitus [email or web address] Not available 2024 15:47:29 Paternal Grandmother Heart disease Not available 2023 15:29:07 Paternal Grandmother Diabetes mellitus [email or web address] Not available 2024 15:47:29 Paternal Aunt Malignant tumor of colon Not available 2024 17:25:14 Medical History Condition Response NERVE DISEASE N BLINDNESS N RHEUMATIC FEVER N KIDNEY STONES N BLADDER PROBLEMS N MRSA N OTHER # 1 N POLIO N LUNG DISEASE/DISORDER N HISTORY OF DRUG ABUSE N RADIATION / CHEMOTHERAPY N COPD N Other # 2 N BLOOD DISEASES N EAR OR HEARING PROBLEMS N MUMPS N SHINGLES N DEPRESSION (INCLUDING POST ) N BOWEL PROBLEMS N FAILED BACK SYNDROME N STROKE/TIA N ULCERS N BENIGN PROSTATIC HYPERPLASIA N MEASLES N HYPOTENSION N MYOCARDIAL INFARCTION N OBESITY N GERD/NAUSEA N ANEURYSM N URINARY/BLADDER/KIDNEY PROBLEMS N CORONARY ARTERY DISEASE (CAD) N Do you have Advance directive? N ADDICTION CONCERNS N Impotence N ENDOMETRIOSIS N USE OF BLOOD THINNERS N SKIN PROBLEMS N GASTROINTESTINAL DISORDER N PERIPHERAL VASCULAR DISEASE N MUSCLE,JOINT OR BONE PROBLEMS N GASTROINTESTINAL BLEEDING N BLOOD CLOTS N ASTHMA N CATARACTS N Abdominal Pain N ERECTILE DYSFUNCTION N ARTERIAL INSUFFICIENCY N VARICOSITIES N GI PROBLEMS N Low Testosterone N INFERTILITY N AIDS/HIV N CHEMOTHERAPY / RADIATION N LIVER DISEASE N MALE HYPOGONADISM N HYPERTENSION Y Deficiency N TOURETTE'S N ANXIETY DISORDER N BLOOD TRANSFUSION N ANEMIA/BLOOD DISORDER N CHRONIC EAR INFECTIONS N TUBERCULOSIS N GLAUCOMA N FOOT PROBLEM N DIVERTICULITIS N SLEEP APNEA N CHICKENPOX N ALLERGIES/HAYFEVER N BACK INJECTIONS N INFECTIOUS DISEASE N PROSTATE N HEART ARRHYTHMIA N ESRD N INSOMNIA N HIGH CHOLESTEROL / HYPERLIPIDEMIA Y EYE PROBLEMS N HYPERTHYROIDISM N PVD N EDEMA N CHRONIC PAIN SYNDROME N HYPOTHYROIDISM N CAROTID BLOCKAGE N CONSTIPATION N BACK / NECK PROBLEMS N ATHEROSCLEROSIS N BREAST PROBLEMS N DIALYSIS N POLYCYSTIC OVARIES N ECZEMA N OSTEOPOROSIS N ARTHRITIS N NO SIGNIFICANT PAST MEDICAL HISTORY N APPENDICITIS N DIABETES, TYPE Y BAD TEETH N VON WILLIBRAND'S DISEASE N ENT N HEARTBURN / REFLUX N GI N AUTISM SPECTRUM DISORDER (ASD) N POST LAMINECTOMY SYNDROME N HEPATITIS / LIVER DISEASE N GOUT N SLEEP DISORDER N ALZHEIMER'S DISEASE N Brain Problems N DEMENTIA N HERPES N SEIZURES/EPILEPSY N HEADACHES/MIGRAINES N VASCULAR DISEASE N PACEMAKER N DIZZINESS N HEART DISEASE/HEART PROBLEMS Y KIDNEY DISEASE N MULTIPLE SCLEROSIS N NEUROPSYCHOLOGICAL N CANCER: SPECIFY N CARDIAC ARRHYTHMIA N ATRIAL FIBRILLATION N Gall Stones N PULMONARY EMBOLISM N AUTOIMMUNE DISEASE N Past Encounters Encounter ID Performer Location Encounter Start Date Encounter Closed Date Diagnosis/Indication Diagnosis SNOMED-CT Code Diagnosis ICD10 Code Diagnosis Note [id number] Lianne lofton MD [facility] [address] [address] 12/17/2023 15:00:20 12/17/2023 16:23:35 Screening - NAD 249510796 Z13.9 C-scope: Get this done if not done Get yearly flu shot, get tdap if not doneCan do COVID 19 vaccine and its boosters RTC in 3 months, do labs, ER if worse, he and his did verbalize her understand ing of the above Essential hypertension 66109903 I10 On ASAOn isosorbide ER 30mg dailyOn lisinopril 10mg dailyOn metoprolol ER 50mg dailyOn NTGGet labs Hyperlipidemia 69127205 E78.5 On ASAOn atorvastat in 80mg dailyGet labs Gastroesop hageal reflux disease without esophagitis 384912647 K21.9 On pantoprazo le 40mg dailyGet EGD Screening for malignant neoplasm of colon 592474531 Z12.11 Type 2 radha betes mellitus without complication 780923550 E11.9 On Jardiance 10mg dailyOn metformin 1000mg bidGet labs Coronary arteriosclerosis 50123414 I25.10 S/p stentsS/p CABG [address] [facility] Dr Genoveva loepz not to take the NSAIDs or tramadol, as per his he is not taking this now [id number] Lianne lofton MD [facility] [address] [facility] [address] [place] [address] 05/19/2024 17:07:22 05/19/2024 18:21:17 Screening - NAD 181313819 Z13.9 C-scope: Get this done if not done Get yearly flu shot, get tdap if not doneCan do COVID 19 vaccine and its boosters RTC in 3 months, do labs, ER if worse, he and his did verbalize her understand ing of the above Essential hypertension 94406015 I10 On ASAOn isosorbide ER 30mg dailyOn lisinopril 10mg dailyOn metoprolol ER 50mg dailyOn NTGGet labs Hyperlipidemia 41016994 E78.5 On ASANot on atorvastat in 80mg dailyOn rosuvastat in 40mg daily filled by Dr Tomas 03/16/2024 Get labs Gastroesop hageal reflux disease without esophagitis 564781439 K21.9 On pantoprazo le 40mg dailyGet EGD Screening for malignant neoplasm of colon 867781854 Z12.11 Type 2 radha betes mellitus without complication 301114493 E11.9 On Jardiance 10mg dailyOn metformin 1000mg bidHas declined any changes in medication s, states that he would like to diet and exercise and repeat the labs in 3 monthsGet labs Coronary arteriosclerosis 39437302 I25.10 On ASAOn plavixOn metoprolol ER 50mg bidOn JardianceO n rosuvastat in 40mg daily S/p stentsS/p CABG in [facility] Dr Genoveva lopez not to take the NSAIDs or tramadol, as per his he is not taking this now Did see Dr Lawler, started on Ranexa 04/20/2024 , as per his he has not yet got the Ranexa as his cardiologi st has not done the PA, next f/u in 6 months Proteinuria 42720747 R80 .9 Get an apt with nephrology Skin tag [id number] L91.8 Noted on the R lateral eye lid, will refer to G surgery [id number] Mazin sheikh MD [facility] General Surgery [address] [place] [address] 06/09/2024 11:57:02 06/13/2024 15:31:05 Multiple skin tags 408628604 L91.8 R & L Eyelids, Left neck [id number] Mazin sheikh MD [facility] General Surgery [address] [address] 06/28/2024 11:52:56 07/08/2024 10:28:47 Multiple skin tags 020778064 L91.8 R & L Eyelids, Left neck [id number] Lianne lofton MD [facility] Internal Med [facility] [address] [address] 11/22/2024 16:57:16 11/22/2024 18:19:56 Screening - NAD 354365266 Z13.9 C-scope: Get this done if not done Get yearly flu shot, get tdap if not doneCan do COVID 19 vaccine and its boosters RTC in 3 months, do labs, ER if worse, he and his did verbalize her understand ing of the above Essential hypertension 55752894 I10 On ASAOn plavixOn isosorbide ER 30mg dailyOn lisinopril 10mg dailyOn metoprolol ER 50mg dailyOn NTGGet labs Hyperlipidemia 03762831 E78.5 On ASANot on atorvastat in 80mg dailyOn rosuvastat in 40mg daily filled by Dr Tomas 03/16/2024 Get labs Gastroesop hageal reflux disease without esophagitis 096360032 K21.9 On pantoprazo le 40mg dailyGet EGD Screening for malignant neoplasm of colon 720909758 Z12.11 Type 2 radha betes mellitus without complication 231502153 E11.9 On Jardiance 10mg daily, renewed 11/22/2024 On metformin 1000mg bidHas declined any changes in medication s, states that he would like to diet and exercise and repeat the labs in 3 monthsGet labs Coronary arteriosclerosis 25124508 I25.10 On ASAOn plavixOn metoprolol ER 50mg bidOn JardianceO n rosuvastat in 40mg daily S/p stentsS/p CABG in [facility] Dr Genoveva Pereira d not to take the NSAIDs or tramadol, as per his he is not taking this now Did see Dr Lawler, started on Ranexa 04/20/2024 , as per his he has not yet got the Ranexa as his cardiologi st has not done the PA, next f/u in 6 months Proteinuria 28577110 R80 .9 Get an apt with nephrology Skin tag [id number] L91.8 Noted on the R lateral eye lid, will refer to [facility] 06/28/2025 [id number] Adrian Juan DPM [facility] [address] [address] 12/07/2024 16:07:29 12/26/2024 15:20:39 Tinea pedis 6215603 B35.3 [id number] Adrian Juan DPM [facility] [place] [address] [address] [address] 12/21/2024 15:59:41 01/11/2025 09:57:09 Onychomycosis of toenails 790246575 B35.1 [id number] Lianne lofton MD [facility] [address] [place] [address] 12/28/2024 16:49:10 12/28/2024 18:22:47 Screening - NAD 025731263 Z13.9 C-scope: Get this done if not done Get yearly flu shot, get tdap if not doneCan do COVID 19 vaccine and its boosters RTC in 3 months, do labs, ER if worse, he and his did verbalize her understand ing of the above Essential hypertension 24647179 I10 On ASAOn plavixOn isosorbide ER 30mg dailyOn lisinopril 10mg dailyOn metoprolol ER 50mg dailyOn NTGGet labs Hyperlipidemia 92346744 E78.5 On ASANot on atorvastat in 80mg dailyOn rosuvastat in 40mg daily filled by Dr Tomas 03/16/2024 , he wants to hold off on taking more medication s, more diet and exercise is neededGet labs Gastroesop hageal reflux disease without esophagitis 672829748 K21.9 On pantoprazo le 40mg dailyGet EGD Screening for malignant neoplasm of colon 403899420 Z12.11 Type 2 radha betes mellitus without complication 814472929 E11.9 On Jardiance 10mg daily, renewed 11/22/2024 On metformin 1000mg bid Get on trescriba1 5U at bedtime all side effects explained to him and his , including HYPOglycem iaGet labs Coronary arteriosclerosis 68868422 I25.10 On ASAOn plavixOn metoprolol ER 50mg bidOn JardianceO n rosuvastat in 40mg daily S/p stentsS/p CABG in [facility] Dr Tomas SLAdvise d not to take the NSAIDs or tramadol, as per his he is not taking this now Did see Dr Lawler, started on Ranexa 04/20/2024 , as per his he has not yet got the Ranexa as his cardiologi st has not done the PA, next f/u in 6 months Referred to [facility] Dr Tomas does not take his insurance anymore Proteinuria 90628330 R80 .9 Get an apt with nephrology Skin tag [id number] L91.8 Noted on the R lateral eye lid, will refer to Buddy Day 06/28/2025 Liver enzy mes level above reference range 761036466 R74.01 Pain of ri ght shoulder joint [id number] 1158094 M25.511 D/t his job has noted persistent painWill get a referral to ortho [id number] Shanelle Irizarry MD [facility] [place] [address] [place] [address] 01/04/2025 14:13:33 01/04/2025 14:36:20 Screening for malignant neoplasm of colon 314387114 Z12.11 Gastroesop hageal reflux disease without esophagitis 206921972 K21.9 [id number] Elijah Staples MD [facility] [address] [address] [place] [address] 01/11/2025 15:21:31 01/11/2025 16:20:58 Pain of right shoulder joint 5210246398 0782906 M25.511 Health Concerns Section Related Observation LastModified by Organization Detai ls LastModified Time None Recorded Concern Status LastModified by Organization Details LastModified Time None Recorded Advance Directives Directive N: Payers Encounter Date Sequence Insurance Name Policy Number Policy Heck Covered Member ID Heck Member ID Guarantor Name 12/07/2024 1 [facility] (MEDICAID HMO) [id number] Milton Temple [id number] Milton Temple 12/21/2024 1 [facility] (MEDICAID HMO) [id number] Milton Temple [id number] Milton Temple 12/28/2024 1 [facility] (MEDICAID HMO) [id number] Milton Temple [id number] Milton Temple 01/04/2025 1 [facility] (MEDICAID HMO) [id number] Milton Temple [id number] Milton Temple 01/11/2025 1 [facility] (MEDICAID HMO) [id number] Milton Temple [id number] Milton Temple Notes Date Note Type Note Provider Name and Address Organization Details Recorded Time 12/07/2024 text/html Pt RTC for routine NIDDM foot evaluation and c/o red itchy feet nhi, flaky Adrian Juan DPM [address], [facility] [address], [place], [address], [facility] [employer] [id number] 12/19/2024 09:01:37 12/21/2024 text/html Pt RTC for c/o thick painful discolored nails both great toes. Adrian Juan DPM [address], [address], [place], [address], [facility] 12/26/2024 09:20:06 12/28/2024 text/html OV 12/17/2023:Here to establish carePresent Hx:[id number] Eneida is to discuss above he feels well otherwise OV 05/19/2024: Here for his f/u apt, he feels well today, he is here with his , he did do the labs OV 11/22/2024: Here for his f/u apt, here with his , no new labs, he did see Dr Day OV 12/28/2024: Here for his f/u apt, he is doing well today, he is here with is , he has done the labs Lianne Wolf MD [address], [address], [place], [address], [employer] 12/28/2024 19:08:03 01/04/2025 text/html PT WAS SEEN IN THE OFFICE TODAY FOR COLON SCREENING . PT DENIES ABD PAIN /N/V/D/BLEEDING /WT LOSSPT WAS SEEN IN THE OFFICE TODAY FOR GERD . PT DENIES ABD PAIN /N/V. PT CHEST PAIN . HE IS S/P CABG X 2 YRS Shanelle Irizarry MD [address], [address], [place], [address], [employer] 01/04/2025 14:38:44
--- NOTE | 2025-02-13 01:29 | ED.DIZZY ---
HPI - Dizziness General Chief Complaint: Dizziness Stated Complaint: Dizzy, off balance, just feel sick Time Seen by Provider: 02/13/25 00:57 Source: patient Limitations: no limitations History of Present Illness HPI Narrative: Patient presents with report of dizziness, feeling slightly off balance and in general just feeling sick. He would describe it as a lightheadedness with nausea but no vomiting. Lives with someone who has not been sick. Sometimes has a spinning sensation (room and self). No shortness of breath, diarrhea. Intermittent chest pain as well as hot flashes which leave him feeling suddenly chillded, but no fever. Symptoms have been going on for 2 weeks. Associated with a frontal headache. No previous history of vertigo. No ear pain, tinnitus, or hearing changes. On Plavix. No vision changes, blurred vision, double vision. Cardiac risk factors HTN: No HLD: Yes DM: Yes - non insulin dependent, metformin Obese: Yes Smoker: No Personal history MS/TIA/CVA: Yes (stent placement x2 and triple bypass) Fam Hx MS in first degree relative <65yo: Yes (father and grandmother) Related Data Allergies Allergy/AdvReac Type Severity Reaction Status Date / Time No Known Allergies Allergy Mild Verified 02/12/25 20:27 PMFSH Past Medical History Medical History Non-insulin dependent diabetes mellitus HLD (hyperlipidemia) Surgical History Surgical History S/P triple vessel bypass H/O heart artery stent x2 Family History Family History Father Acute myocardial infarction <65yo Grandparent Acute myocardial infarction <65yo Social History Social History Smoking status: Never smoker Additional living arrangements comments: Lives with someone Exam Narrative: GENERAL: Well-appearing, well-nourished, and in no acute distress. HEAD: Normocephalic, atraumatic. EYES: Non injected, non icteric ENT: Nares clear, no rhinorrhea or epistaxis. Gross auditory acuity intact. Mild right ear effusion but without bulging, erythema, vesicles. Normal left external auditory canal and TM. Moist mucous membranes. NECK: Supple. No meningismus. CHEST: Speaking in full sentences. No respiratory distress. HEART: Regular rate and rhythm. . ABDOMEN: Soft, nondistended. No rigidity or guarding. Not peritoneal EXTREMITIES: Normal range of motion. No lower extremity edema. SKIN: Warm, dry, no rash. NEURO: No focal deficits. Alert and oriented. Answering questions. Following commands. Normal speech without aphasia or dysarthria. PSYCH: Normal mood and affect. Course Vital Signs Vital signs: Vital Signs Temperature 97.7 F 02/12/25 20:39 Pulse Rate 72 02/12/25 20:39 Respiratory Rate 17 02/12/25 20:39 Blood Pressure 116/76 02/12/25 20:39 Pulse Oximetry 98 02/12/25 20:39 Oxygen Delivery Room Air 02/12/25 20:39 Temperature 97.7 F 02/12/25 20:39 Pulse Rate 63 02/13/25 03:36 Respiratory Rate 12 02/13/25 03:08 Blood Pressure 110/77 02/13/25 03:36 Pulse Oximetry 98 02/13/25 03:08 Oxygen Delivery Room Air 02/12/25 20:39 MDM - Dizziness MDM Narrative Medical decision making narrative: Patient presents with report of dizziness, feeling slightly off balance, occasionally with some spinning sensation (self and room) and associated with nausea. ALso intermittent chest pain and hot flashes/chills. Symptoms have been going on for 2 weeks. In the emergency department they are afebrile with vital signs within normal limits. HEART SCORE History 2 highly suspicious 1 moderately suspicious 0 slightly suspicious History score [address] depression/elevation not due to LBBB, LVH, or digoxin [address] depression but LBBB, LVH, nonspecific repolarization changes 0 normal ECG score 0 Age 2 >/= 65 1 45-64 0 <45 Age score 1 Risk factors (HTN, hypercholesterolemia, DM, obesity with BMI >30, current smoker or cessation </=3mo), positive fam hx with parent or sibling with CVD before age 65, atherosclerotic disease (prior MS, PCI/CABG, CVA/TIA, or peripheral arterial disease) 2 >/= 3 risk factors or history of atherosclerotic dz 1 - 1-2 risk factors 0 no known risk factors Risk factor score 2 Initial Troponin 2 >3 times normal limit 1 1-3 times normal limit 0 less than or equal to normal limit Troponin score 0 Total HEART Score 3. Repeat troponin normal. Patient does have moderate right ICA stenosis based on CTA imaging although there is no further descriptor. In addition, symptoms have been going on for 2 weeks. Patient had been feeling better after one dose of medication. I did ask that orthostatic vital signs be performed and attempt to ambulate patient. Before the results of this could be conveyed and I could re-assess patient again and discuss their CTA findings with them, patient expressed that he would like to leave. AMA paperwork was filled out by RN and I accidentally signed thinking I was going in to discuss with the patient but then learned that patient had already left. Technically therefore, this was not against medical advice as I had not had the opportunity to discuss the details of his work up, plans for follow up, reassess, etc. Differential Diagnosis Differential diagnosis: Likely benign paroxysmal positional vertigo, orthostatic hypotension, vertebral basilar insufficiency, cerebrovascular accident, acute vestibular neuronitis, transient cerebral ischemia and other (ACS, acute viral syndrome, infection) Lab Data Attestation: I reviewed the patient's lab results. Lab results narrative: Glucosuria 02/12/25 20:49 02/12/25 20:49 Labs: Lab Results 02/12/25 02/13/25 02/13/25 Range/Units 20:49 00:46 02:55 WBC 7.2 (4.5-10.0) K/mm3 RBC 5.38 (4.6-6.20) M/mm3 Hgb 15.6 (14.0-18.0) g/dL Hct 46.2 (42.0-52.0) % MCV 85.9 (80-100) fl MCH 29.0 (26-34) pg MCHC 33.8 (32-36) g/dl RDW 12.0 (11.5-14.5) % Plt Count 265 (150-375) k/mm3 MPV 9.7 (7.4-10.4) fl Immature Gran % (Auto) 0.3 (0-0.5) % Neut % (Auto) 48.1 (45.5-73.1) % Lymph % (Auto) 40.7 (18.3-44.2) % Labette % (Auto) 7.9 (2.6-8.5) % Eos % (Auto) 2.2 (0-4.4) % Baso % (Auto) 0.8 (0.2-1.2) % Lymph # (Auto) 2.95 (0.9-3.2) K/mm3 Labette # (Auto) 0.6 (0.1-0.6) K/mm3 Eos # (Auto) 0.2 (0-0.3) K/mm3 Baso # (Auto) 0.1 (0.0-0.1) K/mm3 Abs Immat Gran (auto) 0.02 (0.00-0.031) K/mm3 Absolute Neuts (auto) 3.5 (1.3-6.7) K/mm3 Absolute Nucleated RBC 0.000 (0.0-0.012) K/mm3 Nucleated RBC % 0.0 (0.0-0.2) % PT 12.0 (11.1-14.7) Seconds INR 0.9 APTT 24.8 (22.3-36.8) Seconds Sodium 139 (137-145) mmol/L Potassium 4.1 (3.4-5.0) mmol/L Chloride 107 (98-107) mmol/L Carbon Dioxide 22 (22-30) mmol/L Anion Gap 10 (4-12) mmol/L BUN 16 (9-20) mg/dL Creatinine 0.73 (0.7-1.3) mg/dL Estim Creat Clear Calc 116 ml/min Estimated GFR > 60 (59 - ) Glucose 117 H (65-110) mg/dL Calcium 9.7 (8.4-10.2) mg/dL Total Bilirubin 0.6 (0.2-1.3) mg/dL AST 29 (17-59) U/L ALT 23 (6-50) U/L Alkaline Phosphatase 73 (38-126) U/L Troponin I < 0.012 < 0.012 (0.000-0.034) ng/mL Total Protein 8.0 (6.3-8.2) g/dL Albumin 4.7 (3.5-5.1) g/dL Lipase 81 (23-300) U/L Urine Color (Yellow) Urine Appearance (Clear) Urine pH (5.0-9.0) Ur Specific [place] (1.001-1.035) Urine Protein (Negative) mg/dL Urine Glucose (UA) (Negative) mg/dL Urine Ketones (Negative) mg/dL Ur Blood (Man) (Negative) Urine Nitrate (Negative) Urine Bilirubin (Negative) Urine Urobilinogen (<2.0) mg/dL Leukocyte Esterase Rfl (Negative) TESSA/UL Influenza A (RT-PCR) Negative (Negative) Influenza B (RT-PCR) Negative (Negative) RSV (RT-PCR) Negative (Negative) SARS-CoV-2 RNA (RT-PCR) Negative (Negative) 02/13/25 Range/Units 03:28 WBC (4.5-10.0) K/mm3 RBC (4.6-6.20) M/mm3 Hgb (14.0-18.0) g/dL Hct (42.0-52.0) % MCV (80-100) fl MCH (26-34) pg MCHC (32-36) g/dl RDW (11.5-14.5) % Plt Count (150-375) k/mm3 MPV (7.4-10.4) fl Immature Gran % (Auto) (0-0.5) % Neut % (Auto) (45.5-73.1) % Lymph % (Auto) (18.3-44.2) % Labette % (Auto) (2.6-8.5) % Eos % (Auto) (0-4.4) % Baso % (Auto) (0.2-1.2) % Lymph # (Auto) (0.9-3.2) K/mm3 Labette # (Auto) (0.1-0.6) K/mm3 Eos # (Auto) (0-0.3) K/mm3 Baso # (Auto) (0.0-0.1) K/mm3 Abs Immat Gran (auto) (0.00-0.031) K/mm3 Absolute Neuts (auto) (1.3-6.7) K/mm3 Absolute Nucleated RBC (0.0-0.012) K/mm3 Nucleated RBC % (0.0-0.2) % PT (11.1-14.7) Seconds INR APTT (22.3-36.8) Seconds Sodium (137-145) mmol/L Potassium (3.4-5.0) mmol/L Chloride (98-107) mmol/L Carbon Dioxide (22-30) mmol/L Anion Gap (4-12) mmol/L BUN (9-20) mg/dL Creatinine (0.7-1.3) mg/dL Estim Creat Clear Calc ml/min Estimated GFR (59 - ) Glucose (65-110) mg/dL Calcium (8.4-10.2) mg/dL Total Bilirubin (0.2-1.3) mg/dL AST (17-59) U/L ALT (6-50) U/L Alkaline Phosphatase (38-126) U/L Troponin I (0.000-0.034) ng/mL Total Protein (6.3-8.2) g/dL Albumin (3.5-5.1) g/dL Lipase (23-300) U/L Urine Color Yellow (Yellow) Urine Appearance Clear (Clear) Urine pH 5.5 (5.0-9.0) Ur Specific [place] 1.041 H (1.001-1.035) Urine Protein Negative (Negative) mg/dL Urine Glucose (UA) 3+ H (Negative) mg/dL Urine Ketones Negative (Negative) mg/dL Ur Blood (Man) Negative (Negative) Urine Nitrate Negative (Negative) Urine Bilirubin Negative (Negative) Urine Urobilinogen 0.2 (<2.0) mg/dL Leukocyte Esterase Rfl Negative (Negative) TESSA/UL Influenza A (RT-PCR) (Negative) Influenza B (RT-PCR) (Negative) RSV (RT-PCR) (Negative) SARS-CoV-2 RNA (RT-PCR) (Negative) Imaging Data Radiologist's impression: CTHead Stat Rad: No hemorrhage, hydrocephalus, mass effect or herniation CT A Head Stat Rad: No acute occlusion, severe stenosis, or aneurysm CTA Neck/Carotid Stat Rad: Moderate right ICA stenosis ECG Data EKG #1: Attestation: I personally reviewed and interpreted this ECG as follows: ECG completion date: 02/12/25 ECG completion time: 20:52 Prior ECG tracings: not available for review (No prior for comparison) Interpretation: Normal sinus rhythm at a rate of 72 beats per minute. OR interval 151. QRS 141. QT/QTC 390/414. RBBB given QRS greater [id number]; RSR' M-shaped pattern in V1-V3; wide, slurred S wave in lateral leads (I, aVL, V5-6). Discharge Plan Discharge Clinical Impression: Chest pain, Dizziness, Stenosis of right internal carotid artery, Glucosuria Patient Disposition: Elopement After Seen by Prov Patient Language: Djiboutian Follow-up/Referrals: Luciano,MD Lianne [Primary Care Provider] -
[2025-02-13] MEDS: MECLIZINE HCL 25 MG TABLET PO (02:34)
[2025-02-13 03:08] VITALS: BP 115/77; PULSE 76; RESP 12; O2SAT 98
[2025-02-13 03:36] VITALS: BP 110/77; BP 114/80; BP 116/79; PULSE 63; PULSE 77; PULSE 82
[2025-02-13 03:37] LABS: Influenza A QL RT-PCR Negative (Negative); Influenza B QL RT-PCR Negative (Negative); RSV RNA, RT-PCR Negative (Negative); SARS-CoV-2 RNA PCR Negative (Negative)
[2025-02-13 03:50] LABS: Add Urine Microscopic? NO; Appearance Urine Clear (Clear); Bilirubin Urine Negative (Negative); Blood Urine Negative (Negative); Color Urine Yellow (Yellow); Glucose Urine UA 3+ mg/dL (Negative); Ketones Urine Negative (Negative); Leukocyte Esterase Ur Negative LEU/UL (Negative); Nitrate Urine Negative (Negative); Protein Urine Negative (Negative); Specific Grav Ur 1.041 (1.001-1.035); Urobilinogen Urine 0.2 mg/dL (<2.0); pH Urine 5.5 (5.0-9.0)
== END 2025-02-13 04:15 | disposition left against medical advice (07) ==
LOC: ANHED 02-13 01:15
PROVIDERS: Emergency Provider Student in an Organized Health Care Education/Training Program; PCP Internal Medicine
DX: R07.9 Chest pain, unspecified (principal); R42 Dizziness and giddiness; I65.21 Occlusion and stenosis of right carotid artery; R82.998 Other abnormal findings in urine; Z20.822 Contact with and (suspected) exposure to COVID-19; R94.31 Abnormal electrocardiogram [ECG] [EKG]; E11.9 Type 2 diabetes mellitus without complications; E78.5 Hyperlipidemia, unspecified
CPT/HCPCS: 36415; 70496; 70498; 71046; 80053; 81003; 83690; 84484; 85025; 85610; 85730; 87637; 93005; 99284; A9270; Q9967

== ENCOUNTER 2025-05-31 15:55 | Outpatient (CLI) | payer OTHER, SELFPAY ==
--- OUTSIDE RECORDS SUMMARY | 2024-07-01 09:00 | XMS_ITS ---
Author Organization [facility] Address [address] [facility] [address] [facility] [address] [place] [address] Care Team Providers Care Wood Milling Machine Tender Name Role Phone Aki Diaz Unavailable [phone] Encounters Encounter Location Date Provider Diagnosis [facility] [address] [facility] [address] [place] [address] 07/01/2024 Aki Diaz Plan Of Treatment No Information Progress Notes * Vamshi SAHU MDOB: [birth year] (49 yo M)Acc No.[id number]:07/01/2024 Progress Notes Patient: Elvin MARCANOVamshi Obrien Provider: Vinod RAY MD, Igor.Lynette.C.P, F.A.S.N. :1975 A ge:48 Y S ex:Male Date:07/01/2024 Address:[address] [place] [address] Subjective: * Chief Complaints: * * Medical History: Objective: * Vitals: Assessment: Plan: * Treatment: * Billing Information: * Visit Code: * Procedure Codes: * Electronic signature of Luis Enrique Diaz MD on 05/31/2025 at 04:35 PM CDT Sign off status: Pending * Provider: Vinod RAY MD, Igor.Lynette.C.P, F.A.S.N. Date: Generated for Printing/Faxing/eTransmitting on: 05/31/2025 04:35 PM CDT
--- OUTSIDE RECORDS SUMMARY | 2024-08-19 11:00 | XMS_ITS ---
Author Organization [facility] Office Address [address] [place] [address] Care Team Providers Care Horticultural Therapist Name Role Phone Aki Diaz Unavailable [phone] Problems Problem Type SNOMED Code ICD Code Onset Dates Problem Status W/U Status Risk Notes Problem Chronic kidney disease stage 2 (783294018) Chronic kidney disease, stage 2 (mild) (N18.2) Active confirmed Problem Type II diabetes mellitus without complication (568985751) Type 2 diabetes mellitus without complications (E11.9) Active confirmed Problem Essential hypertension (90121754) Essential hypertension (I10) Active confirmed Problem Hyperlipidemia (54017326) Hyperlipidemia, unspecified (E78.5) Active confirmed Encounters Encounter Location Date Provider Diagnosis [facility] [place] [facility] [address] [place] [address] 08/19/2024 Aki Diaz Chronic kidney disease, stage 2 (mild) N18.2 ; Type 2 diabetes mellitus without complications E11.9 ; Essential hypertension I10 and Hyperlipidemia, unspecified E78.5 Assessments Encounter Date Diagnosis (ICD Code) Assessment Notes Treatment Notes Treatment Clinical Notes Section Notes 08/19/2024 Chronic kidney disease, stage 2 (mild) (ICD-10 - N18.2) 08/19/2024 Type 2 diabetes mellitus without complications (ICD-10 - E11.9) 08/19/2024 Essential hypertension (ICD-10 - I10) 08/19/2024 Hyperlipidemia, unspecified (ICD-10 - E78.5) Plan Of Treatment No Information Progress Notes * Vamshi SAHU MDOB: [birth year] (49 yo M)Acc No.[id number]:08/19/2024 Progress Notes Patient: Elvin Vamshi CARDONA Provider: Vinod RAY MD, F.A.C.P, F.A.S.N. :1975 A ge:48 Y S ex:Male Date:08/19/2024 Address:[facility] [place] [address] Subjective: * Chief Complaints: * * Medical History: Objective: * Vitals: Assessment: * Assessment: 1. C hronic kidney disease, stage 2 (mild) - N18.2 (Primary) 2 . T ype 2 diabetes mellitus without complications - E11.9 3 . E ssential hypertension - I10? 4. H yperlipidemia, unspecified - E78.5 Plan: * Treatment: * Billing Information: * Visit Code: 56195 Office Visit, New Pt., Level 5. * Procedure Codes: * Electronic signature of Luis Enrique Diaz MD on 05/31/2025 at 04:35 PM CDT Sign off status: Pending * Provider: Vinod RAY MD, F.AGabinoCGabinoP, F.A.S.N. Date: 10/20/2023 Generated for Printing/Faxing/eTransmitting on: 0 05/31/2025 04:35 PM CDT
--- NOTE | ~2025-05-31 | MR_ITS ---
EXAMINATION: MR shoulder RT wo con DATE: 05/31/2025 16:44 INDICATION: Pain in joint of right shoulder. TECHNIQUE: Magnetic resonance imaging (MRI) of the right shoulder was performed without intravenous contrast. Sequences included axial PD-weighted FS FSE, coronal oblique PD-weighted FS FSE and T2-weighted FS FSE, and sagittal oblique T2-weighted FS FSE and T1-weighted FSE. COMPARISON: None. FINDINGS: Coracoacromial arch: The acromion undersurface is curved in morphology (type II). There is severe acromioclavicular joint osteoarthritis including inferiorly directed osteophytes. There is a physiologic volume of fluid in subacromial/subdeltoid bursa. Rotator cuff: There is mild supraspinatus and infraspinatus tendinopathy. Teres minor tendon is normal. Subscapularis tendon is normal. There is no asymmetric fatty atrophy of the rotator cuff muscle bellies. Biceps tendon and glenoid labrum: Biceps tendon is in bicipital groove. Intra-articular biceps tendon is normal. The glenoid labrum is normal. Fluid: There is a small glenohumeral joint effusion. Bones/cartilage: Glenoid cartilage is normal. The humeral head cartilage is normal. IMPRESSION: 1. Mild rotator cuff tendinopathy. No tear. 2. Small glenohumeral joint effusion. 3. Severe acromioclavicular joint osteoarthritis. Reviewed, dictated and finalized at location E.
--- OUTSIDE RECORDS SUMMARY | 2025-05-31 16:35 | XMS_ITS | Patient Health Record ---
Author Organization [facility] Address [address] [place] [address] Care Team Providers Care Substation Manager Name Role Phone Aki Diaz Unavailable [phone] Reason For Referral No Information Problems Problem Type SNOMED Code ICD Code Onset Dates Problem Status W/U Status Risk Notes Problem Type II diabetes mellitus without complication (843244350) Type 2 diabetes mellitus without complications (E11.9) Active confirmed Problem Hyperlipidemia (09055698) Hyperlipidemia, unspecified (E78.5) Active confirmed Problem Chronic kidney disease stage 2 (250016576) Chronic kidney disease, stage 2 (mild) (N18.2) Active confirmed Problem Essential hypertension (85415233) Essential hypertension (I10) Active confirmed Encounters Encounter Location Date Provider Diagnosis [facility] [address] [place] [address] 08/19/2024 Aki Diaz Chronic kidney disease, stage [...]
--- OUTSIDE RECORDS SUMMARY | 2025-05-31 16:35 | XMS_ITS | Clinical Summary ---
Author Organization [facility] Address [facility] [place] [address] Care Team Providers Care Tobacco Conditioner Name Role Phone Lianne Wolf MD Primary Care Provider Allergies No known active allergies Medications metFORMIN (GLUCOPHAGE) 1000 MG tablet Take 1 tablet (1,000 mg total) by mouth 2 (two) times daily. Active clopidogrel (PLAVIX) 75 MG tablet Take 1 tablet (75 mg total) by mouth daily. 04/20/2024 Active ASPIRIN EC 81 MG tablet Take 1 tablet (81 mg total) by mouth daily. Active lisinopril (PRINIVIL) 10 MG tablet Take 1 tablet (10 mg total) by mouth daily. 04/20/2024 Active metoprolol succinate ER (TOPROL-XL) 50 MG 24 hr tablet TAKE 1 TABLET BY MOUTH TWICE DAILY EVERY DAY 04/20/2024 Active rosuvastatin (CRESTOR) 40 MG tablet Take 1 tablet (40 mg total) by mouth nightly at bedtime. Active nitroglycerin (NITROSTAT) 0.[address] 1 tablet (0.4 mg total) under the tongue every 5 (five) minutes as needed. FOR CHEST PAIN Active JARDIANCE 10 MG tablet Take 1 tablet (10 mg total) by mouth daily. Active Active Problems Problem Noted Date Diagnosed Date Stage 2 chronic kidney disease 04/18/2025 Gastroesophageal reflux disease without esophagi tis 12/17/2023 Acute postoperative pulmonary insufficiency 10/16 S/P CABG (coronary artery bypass graft) 11/03/19 Angina pectoris, unstable (CMS/HCC [facility]/HCC) 10/15 Acute chest pain 10/23/2023 Arteriosclerosis of coronary artery 10/23/2023 Essential hypertension 05/01/2022 Diabetes mellitus ([facility]) 07/26/2019 Hyperlipidemia 07/26/2019 Encounters Date Type Department Care Team Description 05/09/2025 Telephone [facility] [address], [address] [place] [address] Jose Hooper MD Surgical Clearance 04/25/2025 11:15 AM CDT Telephone [facility] [address], [address] [place] [address] Jose Hooper MD Holter Monitor 04/21/2025 Abstract [facility] [address] [place] [address] Telly Ruvalcaba MA 04/19/2025 2:00 PM CDT Office Visit [facility] [address], [address] [place] [address] Jose Hooper MD Coronary Artery Disease (New Consult ); Hypertension 04/19/2025 Scan [facility] [address], [facility] [address] [place] [address] Scanned, Doc Pccl 04/19/2025 Travel 04/12/2025 Scan [facility], [place] [address] [place] [address] Scanned, Doc Pccl from Last 3 Months Family History Medical History Relation Comments CABG Father Colon Cancer Paternal Aunt Heart Disease Paternal Grandmother Relation Status Comments Father Paternal Aunt Unknown Paternal Grandmother Social History Tobacco Use Types Packs/Day Years Used Date Smoking Tobacco: Never Smokeless Tobacco: Never Alcohol Use Standard Drinks/Week Comments Not Currently 0 (1 standard drink = 0.6 oz pur e alcohol) Sex and Gender Information Value Date Recorded Sex Assigned at Male 04/19/2025 1:44 PM CDT Legal Sex Male 11:14 AM HAND FUR CLEANER Gender Identity Not on file Sexual Orientation Not on file Last Filed Vital Signs Vital Sign Reading Time Taken Comments Blood Pressure 122/76 04/19/2025 1:55 PM CDT Pulse 76 04/19/2025 1:55 PM CDT Temperature - - Respiratory Rate - - Oxygen Saturation 96% 04/19/2025 1:55 PM CDT Inhaled Oxygen Concentration - - Weight 97.1 kg (214 lb) 04/19/2025 1:55 PM CDT Height 170.2 cm (5' 7) 04/19/2025 1:55 PM CDT Body Mass Index 33.52 04/19/2025 1:55 PM CDT Plan of Treatment Upcoming Encounters Date Type Department Care Team (Late st Contact Info) Description 10/25/2025 2:15 PM HAND FUR CLEANER Office Visit [facility], [address] [place], [place] [id number] Rona Shepherd, [place] [address] [place], [place] [id number] Health Maintenance Due Date Last Done Comments Colorectal Cancer Screening Colonoscopy (10 Years) 1975 Kidney Health Evaluation 1975 Annual Physical 1978 Diabetes: Retinopathy Eye Exam 1993 Hepatitis C 1993 DTaP, Tdap and Td Vaccines ( 1 - Tdap) 1994 Hepatitis B Vaccines (1 of 3 - 19+ 3-dose series) 1994 Pneumococcal Vaccine: Pediatrics (0 to 5 Years) and At-Risk Patients (6 to 49 Years) (1 of 2 - PCV) 1994 Hemoglobin A1C 09/02/2024 03/03/2024, 10/24/2023, 04/23/2022 COVID-19 Vaccine (1 - 2023-2 5 season) 2025 Lipid Panel 12/07/2025 12/07/2024, 04/22/2022 Meningococcal B Vaccine Aged Out No l onger eligible based on patient's age to complete this topic Meningococcal Vaccine Aged Out No rina roland eligible based on patient's age to complete this topic RSV Immunizations Under 20 Months Aged Out No longer eligible b ased on patient's age to complete this topic Procedures Procedure Name Priority Date/Time Associated Diagnosis Comments ELECTROCARDIOGRAM (NON MIDMARK ACQUIRED) Routine 04/19/2025 2:13 PM CDT S/P CABG (coronary artery bypass graft) LIPID PANEL Routine 12/07/2024 from Last 3 Months or Most Recently Relevant to Health Maintenance Results * ELECTROCARDIOGRAM (04/19/2025 2:13 PM CDT) 04/19/2025 2:13 PM CDT Narrative [facility] - 04/25/2025 7:39 AM CDT [facility] Test Date: 2025-04-19 Pat Name: MILTON SAHU Department: 112 Room: Gender: Male Business Programmer: : 1975 Requested By: JOSE HOOPER Order Number: [id number] Julius MAZA: Roge Gibbons Measurements Intervals [place] Rate: 69 P: 23 OK: 155 QRS: 108 QRSD: 145 T: 46 QT: 403 QTc: 434 Interpretive Statements SINUS RHYTHM RIGHT AXIS DEVIATION RIGHT BUNDLE BRANCH BLOCK Procedure Note Roge Gibbons MD - 04/25/2025 [facility] Test Date: 2025-04-19 Pat Name: MILTON SAHU Department: 112 Room: Gender: Male Business Programmer: : 1975 Requested By: JOSE HOOPER Order Number: [id number] Julius Gibbons Measurements Intervals [place] Rate: 69 P: 23 OK: 155 QRS: 108 QRSD: 145 T: 46 QT: 403 QTc: 434 Interpretive Statements SINUS RHYTHM RIGHT AXIS DEVIATION RIGHT BUNDLE BRANCH BLOCK us Jose Hooper MD PROCEDURES-ORDERABLE NO ELI RGE Final Result [facility] * LIPID PANEL (12/07/2024) CHOLESTEROL 251 TRIGLYCERIDES 143 HDL 45 LDL (CALCULATED) 177 us Default History Genericprovider LABORATORY Final Result from Last 3 Months or Most Recently Relevant to Health Maintenance Insurance [employer] Care Teams Tobacco Conditioner Relationship Specialty Start Date End Date Lianne Wolf MD [address] [facility] [address] [place] [address] PCP - General INTERNAL MEDICINE 04/19/25
--- OUTSIDE RECORDS SUMMARY | 2025-05-31 16:35 | XMS_ITS | Encounter Summary ---
Author Organization [facility] Address [address] [place] [id number] Care Team Providers Care Choke Reamer Name Role Phone Lianne Wolf MD Primary Care Provider Encounter Details Date Type Department Care Team (Late st Contact Info) Description 04/21/2025 Abstract [facility] [facility], [facility] [address] [place], [place] [id number] Telly Ruvalcaba MA Social History Tobacco Use Types Packs/Day Years Used Date Smoking Tobacco: Never Smokeless Tobacco: Never Alcohol Use Standard Drinks/Week Comments Not Currently 0 (1 standard drink = 0.6 oz pur e alcohol) Sex and Gender Information Value Date Recorded Sex Assigned at Male 04/19/2025 1:44 PM CDT Legal Sex Male 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 Gender Identity Not on file Sexual Orientation Not on file documented as of this encounter Plan of Treatment Upcoming Encounters Date Type Department Care Team (Late st Contact Info) Description 10/25/2025 2:15 PM PARTS ADMINISTRATOR Office Visit [facility], [facility] [address] [place], [place] [id number] Rona Shepherd FNP [address] [facility] [address] [place], [place] [id number] documented as of this encounter Procedures Procedure Name Priority Date/Time Associated Diagnosis Comments COMPREHENSIVE METABOLIC PANEL Routine 12/07/2024 LIPID PANEL Routine 12/07/2024 CBC, MANUAL DIFF Routine 12/07/2024 THYROID STIM HORMONE TSH Routine 12/07/2024 CMP (ABSTRACTED LAB) Routine 04/22/2022 LIPID PANEL Routine 04/22/2022 documented in this encounter Results * COMPREHENSIVE METABOLIC PANEL (12/07/2024) SODIUM S/P/B 136 GLUCOSE 172 mg/dL AST 68 BUN 14 CREATININE S/P/B 0.75 0.7 - 1.3 CALCIUM S/P/B 9.2 POTASSIUM S/P/B 4.5 CHLORIDE S/P/B 109 ALT 29 GFR ESTIMATE >60 Default History Genericprovider LABORATORY Final Result * LIPID PANEL (12/07/2024) CHOLESTEROL 251 TRIGLYCERIDES 143 HDL 45 LDL (CALCULATED) 177 Default History Genericprovider LABORATORY Final Result * CBC, MANUAL DIFF (12/07/2024) Pathologist [facility] WBC 6.0 HGB 15.9 HCT 47.1 PLT 244 Default History Genericprovider LABORATORY Final Result * THYROID STIM HORMONE TSH (12/07/2024) TSH 0.726 Default History Genericprovider LABORATORY Final Result * CMP (ABSTRACTED LAB) (04/22/2022) POTASSIUM S/P/B Comment:error,deleted 04/22/2022 Default History Genericprovider LAB-OUTSIDE/ABST RACTED Edited Result - Final * LIPID PANEL (04/22/2022) CHOLESTEROL Comment:error,deleted 04/22/2022 us Default History Genericprovider LABORATORY Edited Result - Final documented in this encounter Visit Diagnoses Not on filedocumented in this encounter Care Teams Choke Reamer Relationship Specialty Start Date End Date Lianne Wolf MD [address] [address] PCP - General INTERNAL MEDICINE 04/19/25 documented as of this encounter
--- OUTSIDE RECORDS SUMMARY | 2025-05-31 16:35 | XMS_ITS | Clinical Summary ---
Author Organization [facility] Address [address] [place] [id number] Care Team Providers Care Rotary Bar Operator Name Role Phone Earl Price MD Unavailable [phone] Dat Tomas MD Unavailable Lizette Smith MD Unavailable [phone] Se Wolf MD Primary Care Provide r Dusty Scruggs MD Unavailable [phone] Allergies No known active allergies Medications empagliflozin [...] 12 hr tabletIndications:C oronary artery disease involving ak chin coronary artery of ak chin heart without angina pectoris,Chest pain, unspecified type Take 1 tablet (500 mg total) by mouth 2 (two) times a day 60 tablet 11 4 Active clopidogreL (PLAVIX) 75 mg tabletIndications:C oronary artery disease involving ak chin coronary artery of ak chin heart without angina pectoris Take 1 tablet (75 mg total) by mouth daily 90 tablet 3 4 Active lisinopriL (PRINIVIL,ZESTRIL) 10 mg tabletIndications:P rimary hypertension Take 1 tablet (10 mg total) by mouth daily 90 tablet 3 4 Active metoprolol XL (TOPROL-XL) 50 mg extended release tabletIndications:C oronary artery disease involving ak chin coronary artery of ak chin heart without angina pectoris,Primary hypertension Take 1 tablet (50 mg total) by mouth 2 (two) times a day 180 tablet 3 4 Active nitroglycerin (NITROSTAT) 0.4 mg SL tabletIndications:C oronary artery disease involving ak chin coronary artery of ak chin heart without angina pectoris,Chest pain, unspecified type Place 1 tablet (0.4 mg total) under the tongue every 5 (five) minutes as needed for chest pain 90 tablet 4 Active rosuvastatin (CRESTOR) 40 mg tabletIndications:C oronary artery disease involving ak chin coronary artery of ak chin heart without angina pectoris,Mixed hyperlipidemia Take 1 tablet (40 mg total) by mouth nightly 90 tablet 3 4 Active lidocaine (LIDODERM) 5 %Indications:Pain Place 1 [...] type 10/23/2023 Coronary artery disease invo lving ak chin coronary artery of ak chin heart without angina pectoris 10/23/2023 Hyperlipidemia 05/01/2022 Hypertension 05/01/2022 Resolved Problems Problem Noted Date Diagnosed Date Resolved Date Multi-vessel coronary artery stenosis 11/06/2023 01/08/2024 Surgical History Surgery Date Site/Laterality Comments CORONARY ANGIOPLASTY WITH STENT PLACEMENT 04/14/2022 - 05/14/2022 ANGEL X2 CARDIAC CATHETERIZATION 10/15/2023 - 11/12/2023 Severe LAD disease, occluded PDA that fills with [id number] collaterals, and severe stenosis in an OM distribution. CORONARY ARTERY BYPASS GRAFT 11/03/2023 N/A Triple bypass Medical History Medical History Date Comments Coronary artery disease Diabetes mellitus (HCC) Hypercholesteremia Hypertension Type 2 diabetes mellitus CAD (coronary artery disease) History of inferior wall myocardial infarction 2 022 Social History Tobacco Use Types Packs/Day Years Used Date Smoking Tobacco: Never Smokeless Tobacco: Never Tobacco Cessation:Counseling Given: Not Answered [facility] Utilities Answer Date Recorded In the past 12 months has e [employer], [employer], oil, or water Storee threatened to shut off services in your home? No 11/16/2023 Social Connection and Isolation Panel Answer Date Recorded In a typical week, how many times do you talk on the phone with family, friends, or neighbors? More than three times a week 11/16/2023 How often do you get togethe r with friends or relatives? More than three times a week 11/16/2023 How often do you attend chur ch or orthodoxy services? Never 11/16/2023 Do you belong to any clubs o r organizations such as zoroastrianism groups, unions, fraternal or athletic groups, or [...] place to sleep or slept in a alf (including now)? No 11/16/2023 Personal Safety Answer [...] Comments Blood Pressure 120/66 11/18/2024 11:45 PM SPONGE PACKER Pulse 61 11/18/2024 11:45 PM SPONGE PACKER Temperature 36.6 C (97.9 F) 11/18/2024 8:16 PM SPONGE PACKER Respiratory Rate 18 11/18/2024 11:45 PM SPONGE PACKER Oxygen Saturation 98% 11/18/2024 11:45 PM SPONGE PACKER Inhaled Oxygen Concentration - - Weight 97.1 kg (214 lb) 11/18/2024 8:34 PM SPONGE PACKER Height 170.2 cm (5' 7) 11/18/2024 8:16 PM SPONGE PACKER Body Mass Index 33.52 11/18/2024 8:16 PM SPONGE PACKER Plan of Treatment Health Maintenance Due Date Last Done Comments Colon Cancer Screening-Colonoscopy 1975 Depression Screening 1975 Hepatitis C Screening 1975 DTaP/Tdap/Td Vaccine (1 - Tdap) 1986 Hepatitis B Screening 1993 Regular Well Visit/Exam 18-64 1993 Influenza Vaccine (#1) 2025 Pneumococcal vaccine <65 Aged Out No longer eligible based on patient's age to complete this topic Medical Devices Implanted Type Area Ccnp Device Identifier Shelf Expiration Date Model / Serial / Lot pickrset Synergy Xd Monorail 3.5mm 24mm 144cm Delivery System 1 Access [id number] - [id number] Implanted:Qty: 1 on 04/22/2022 by Dat Tomas MD at [facility] [employer] Paul 12/09/2023 [id number] / / [id number] [employer] Paul Angio-Seal Vip 6fr Closere Device [id number] - [id number] Implanted:Qty: 1 on 10/26/2023 by Sin Lawler MD at [facility] N/A: Groin [employer] Paul 02/23/2024 [id number] / / [id number] [employer] Heck Distal Marker Radiology Stainless Steel Sterile Amgm-D - [id number] Implanted:Qty: 2 on 11/03/2023 by Dusty Scruggs MD at [facility] Left: Heart [employer] [id number] 02/12/2026 AMGM-D / / [id number] [employer] V[employer] System Closure Repair Femoral Artery Suture Mediated Perclose Prostyle [id number] - [id number] Implanted:Qty: 1 on 04/08/2024 by Sin Lawler MD at [facility] [employer] 11/11/2025 [id number] / / [id number] Insurance [facility] Advance Directives For more information, please contact: [phone] * Full Code (Latest Code Status on File) Date Activated Date Inactivated Comments 11/15/2023 8:34 PM 11/18/2023 5:34 PM * Full Code Date Activated Date Inactivated Comments 11/03/2023 2:59 PM 11/09/2023 11:11 PM * Full Code Date Activated Date Inactivated Comments 10/23/2023 11:52 PM 10/29/2023 8:14 PM * Full Code Date Activated Date Inactivated Comments 04/22/2022 11:25 PM 04/24/2022 8:49 PM Care Teams Rotary Bar Operator Relationship Specialty Start Date End Date Se Wolf MD [address] [facility] [address] [place] [address] PCP - General Internal Medicine 03/04/24 [place] [address] [id number] [place] [address] Consulting Physician Endocrinology Diabetes & Metabolism 04/24/22 Dat Tomas MD [address] [place] [address] Consulting Physician Cardiovascular Disease 04/24/22 Lizette Smith MD [address] [address] Consulting Physician Cardiology 11/18/23 Dusty Scruggs MD [address] [facility] [address] [place] [address] Thoracic Surgery 03/15/24
== END 2025-05-31 15:56 | disposition home or self-care (01) ==
PROVIDERS: PCP Internal Medicine; Visit Provider Orthopaedic Surgery
DX: M19.011 Primary osteoarthritis, right shoulder (principal); M25.411 Effusion, right shoulder
CPT/HCPCS: 73221